=== PATIENT | male | born 1950 | race Caucasian/White ===

== ENCOUNTER 2017-03-15 10:03 | Emergency (ER) | payer BC, MEDICARE ==
[2017-03-15 10:13] VITALS: BP 152/79
--- NOTE | 2017-03-15 10:30 | UC ---
Ear Complaint HPI - HPI Summary HPI Summary: Pt presents with ringing in his left ear. He tells me that about a week ago he developed spontaneous ringing in his left ear. The ringing is difficult for him to notice when active, but when he lays down at night - it is quite bothersome. He describes the ringing as a high pitched "buzz". 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 No hearing loss out of that ear and it does not feel muffled. His BP is mildly elevated today, but says this is not uncommon for him and he is being treated for HTN. Denies dizziness, headache, recent illness, weakness, fatigue, neck pain, vision changes, palpitations, SOB, chest pain, abdominal pain, N/V/D/C, or feelings of being off balance. - History of Current Complaint Chief Complaint: UCEar Stated Complaint: EAR COMPLAINT Time Seen by Provider: 03/15/17 10:19 Hx Obtained From: Patient Onset/Duration: Sudden Onset Severity Initially: Mild Severity Currently: Mild - Allergies/Home Medications Allergies/Adverse Reactions: Allergies Allergy/AdvReac Type Severity Reaction Status Date / Time No Known Allergies Allergy Verified 03/15/17 10:13 PMH/Surg Hx/FS Hx/Imm Hx Endocrine History: Dyslipidemia Cardiovascular History: Hypertension GI/ History: Gastroesophageal Reflux - Surgical History Surgical History: Yes Surgery Procedure, Year, and Place: SMALL BOWEL RESECTION; abd hernia - Family History Known Family History: Positive: Unknown - Social History Occupation: Retired Lives: With Family Alcohol Use: None Substance Use Type: None Smoking Status (MU): Never Smoked Tobacco Type: Cigarettes Have You Smoked in the Last Year: No - Immunization History Most Recent Influenza Vaccination: 2014 Most Recent Tetanus Shot: 2010 Most Recent Pneumonia Vaccination: Never Review of Systems Constitutional: Negative Skin: Negative Eyes: Negative ENT: Other - ringing in left ear Respiratory: Negative Cardiovascular: Negative Gastrointestinal: Negative Genitourinary: Negative Motor: Negative Neurovascular: Negative Musculoskeletal: Negative Neurological: Negative Psychological: Negative All Other Systems Reviewed And Are Negative: Yes Physical Exam Triage Information Reviewed: Yes Appearance: Well-Appearing, Well-Nourished Vital Signs: Initial Vital Signs Temp 98.2 F 03/15/17 10:10 Pulse 68 03/15/17 10:10 Resp 14 03/15/17 10:10 BP 152/79 03/15/17 10:10 Pulse Ox 100 03/15/17 10:10 Vital Signs Reviewed: Yes Eyes: Positive: Conjunctiva Clear, Other: - PERRLA. EOMI.. Negative: Conjunctiva Inflamed, Discharge ENT: Positive: Hearing grossly normal - Whisper test heard equally bilaterally, Pharynx normal, TMs normal, Uvula midline. Negative: Pharyngeal erythema, Nasal congestion, Nasal drainage, TM bulging, TM dull, TM red, Tonsillar swelling, Tonsillar exudate, Sinus tenderness Neck: Positive: Supple, No Lymphadenopathy, Other: - FROM. NTTP. Negative spurlings. Respiratory: Positive: Chest non-tender, Lungs clear, Normal breath sounds, No respiratory distress, No accessory muscle use Cardiovascular: Positive: RRR, No Murmur, Pulses Normal, Brisk Capillary Refill , Other: - No carotid bruit appreciated b/l. Abdomen Description: Positive: Nontender, No Organomegaly, Soft. Negative: CVA Tenderness (R), CVA Tenderness (L), Distended, Guarding Bowel Sounds: Positive: Present Musculoskeletal: Positive: Strength Intact - Throughout 5/5, ROM Intact Neurological: Positive: Alert, Muscle Tone Normal, Other: - A&Ox3. 3 word recall , remote, recent memory, ability to follow 2-step directions, and attention intact. CN II XII grossly intact. [id number]-[id number] are intact. Gait with normal base. Romberg: maintains balance, no pronator drift. Sensory: Intact UEs and LEs. Reflexes: biceps, triceps, brachioradialis, knee, and ankle intact. Normal speech. No facial drooping. Psychological: Positive: Age Appropriate Behavior Skin: Negative: rashes, significant lesion(s) Ear Complaint Course/Dx - Course Course Of Treatment: Tinnitus of unknown etiology. Pt is stable, his exam is unremarkable, and he has no other symptoms at this time. I presented the patient to Dr. Lara and we discussed risks including, but not limited to; CVA, TIA, cardiac abnormalities, and vascular disease. Given the patient's 1 week hx of isolated tinnitus - advised follow up with PCP this week. - Differential Dx/Diagnosis Differential Diagnosis/HQI/PQRI: Cerumen Impaction, Foreign Body, Otitis Externa , Otitis Media, Perforated TM, Trigeminal Nueralgia, URI Provider Diagnoses: Tinnitus Discharge - Discharge Plan Condition: Stable Disposition: HOME Patient Education Materials: Tinnitus (ED) Referrals: Christiano Santiago MD [Primary Care Provider] - 5 Days Additional Instructions: If you develop a fever, SOB, chest pain, headache, dizziness, balance disturbances, new or worsening symptoms - please call your PCP or go to the ED. Your blood pressure was high at todays visit. Please see your primary provider within 4 weeks for recheck and re-evaluation. 1) Please call your PCP and schedule a follow up appointment within the next 5 days.
== END 2017-03-15 11:05 | disposition home or self-care (01) ==
LOC: UCEAST 10:03
DX: H93.12 Tinnitus, left ear (principal); I10 Essential (primary) hypertension; E78.5 Hyperlipidemia, unspecified; K21.9 Gastro-esophageal reflux disease without esophagitis
CPT/HCPCS: 99211; G0463

== ENCOUNTER 2017-04-24 19:22 | Emergency (ER) | payer MEDICARE ==
[2017-04-24 19:36] VITALS: BP 119/84
--- NOTE | 2017-04-24 20:16 | UC ---
Sai Meeks Stephanie, scribed for Gabriela Madrid MD on 04/24/17 at 2000 . Abdominal Pain Male HPI - HPI Summary HPI Summary: The pt is a 67 y/o M presenting to with c/o abd pain that began on 04/22/17. Symptoms include nausea, sleep disturbances, lightheadedness, vomiting and muscle aches within the lower extremities. He vomited 3x overnight on 04/22, but not since then. The pt denies recent sick contacts. He denies blood in stool, unusual BM, CP, SOB, fever and FRIAS. He is passing gas. Today he had eggs for breakfast and soup tonight, without further emesis. The pt reports receiving his influenza vaccine this season. Came tonight because he was watching a report on influenza and thought that he might need to take something. Hx of small bowel obstruction, ? benign tumor, with resection. Had c-scope in 2016/endoscopy, overall normal. - History of Current Complaint Chief Complaint: UCAbdominalPain Stated Complaint: ACHES, AND ABDOMINAL PAIN Time Seen by Provider: 04/24/17 19:41 Hx Obtained From: Patient Onset/Duration: Lasting Days - 2, Still Present Severity Currently: Mild Pain Intensity: 0 Pain Scale Used: 0-10 Numeric Location: Diffuse - katherin-umbilical Radiates: No Aggravating Factor(s): Nothing Alleviating Factor(s): Nothing - no meds used; does take famotidine for stomach acid. Associated Signs And Symptoms: Positive: Nausea, Vomiting, Other - sleep disturbances, muscle aches in lower extremities.. Negative: Fever, Chest Pain, Blood in Stool, Urinary Symptoms, Diarrhea - Allergies/Home Medications Allergies/Adverse Reactions: Allergies Allergy/AdvReac Type Severity Reaction Status Date / Time No Known Allergies Allergy Verified 04/24/17 19:36 PMH/Surg Hx/FS Hx/Imm Hx Cardiovascular History: Hypertension, Other - HLD Other Cardiovascular History: HLD - Surgical History Surgical History: Yes Surgery Procedure, Year, and Place: SMALL BOWEL RESECTION; abd hernia - Family History Known Family History: Positive: Other - Multiple sclerosis- maternal Negative: Cardiac Disease, Diabetes - Social History Occupation: Retired - [employer] Lives: With Family - , no children Alcohol Use: None Substance Use Type: None Smoking Status (MU): Never Smoked Tobacco Type: Cigarettes Have You Smoked in the Last Year: No - Immunization History Most Recent Influenza Vaccination: 2014 Most Recent Tetanus Shot: 2010 Most Recent Pneumonia Vaccination: Never Review of Systems Constitutional: Other - sleep disturbances Skin: Negative Eyes: Negative ENT: Negative Respiratory: Negative Cardiovascular: Other - treated hypertension, started amlodipine 2 weeks ago with reduction of BP. BP was 170 systolic at PMD office at that time. Gastrointestinal: Abdominal Pain, Vomiting, Nausea Genitourinary: Negative, Other - normal urine passage. Motor: Negative Neurovascular: Negative Musculoskeletal: Other: - lower extremity muscle aches Neurological: Other - lightheadedness Psychological: Negative Is Patient Immunocompromised?: No All Other Systems Reviewed And Are Negative: Yes Physical Exam Triage Information Reviewed: Yes Appearance: Well-Nourished - Looks older than age, vague historian Vital Signs: Initial Vital Signs Temp 98.4 F 04/24/17 19:30 Pulse 85 04/24/17 19:30 Resp 12 04/24/17 19:30 BP 119/84 04/24/17 19:30 Pulse Ox 99 04/24/17 19:30 Eyes: Positive: Conjunctiva Clear ENT: Positive: Pharynx normal, Pharyngeal erythema Neck: Positive: Supple, Nontender, No Lymphadenopathy Respiratory: Positive: Lungs clear, Normal breath sounds Cardiovascular: Positive: RRR, No Murmur Abdomen Description: Positive: No Organomegaly, Soft, Other: - mild tenderness left mid abdomen without guarding or rebound. NO distention.. Negative: CVA Tenderness (R), CVA Tenderness (L) Bowel Sounds: Positive: Present - all 4 quadrants. Neurological: Positive: Alert, Muscle Tone Normal Psychological Exam: Other - ? mildly depressed affect. Skin Exam: Normal Abd Pain Male Course/Dx - Course Course Of Treatment: The pt is a 67 y/o M presenting to with c/o abd pain, nausea, sleep disturbances, lightheadedness, vomiting and muscle aches within the lower extremities that began on 04/22/17. Vital sounds are stable, and exam is reassuring. NO evidence of bowel obstruction. - Differential Dx/Clinical Impression Differential Diagnosis/HQI/PQRI: Appendicitis, Diverticulitis, Ischemic Bowel Provider Diagnoses: viral gastroenteritis, resolving. Clinical exam not suggestive of obstruction. Discharge - Discharge Plan Condition: Stable Disposition: HOME Patient Education Materials: Abdominal Pain (ED) Referrals: Christiano Santiago MD [Primary Care Provider] - Additional Instructions: As discussed, your symptoms are improving. I advise you to drink more fluids, ensuring that you take in about 64 ounces of fluid in the next several days. If you have persistent nausea, or any vomiting, I suggest seeing your PMD tomorrow or considering an emergency room visit for testing. You can take acetaminophen 650mg for discomfort. The documentation as recorded by the Sai vivar Stephanie accurately reflects the service I personally performed and the decisions made by me, Gabriela Madrid MD.
== END 2017-04-24 20:20 | disposition home or self-care (01) ==
LOC: UCEAST 19:22
DX: A08.4 Viral intestinal infection, unspecified (principal)
CPT/HCPCS: 99211; G0463

== ENCOUNTER 2018-06-03 12:20 | Inpatient (IN) | payer MEDICARE ==
--- NOTE | 2018-06-03 12:48 | ED ---
GI/ HPI - HPI Summary HPI Summary: A 68 y/o M presents to ED with c/o bloody, bright red, stool 2x today with last onset at 1030. He went to his PCP this AM who referred him to the ED for further evaluation. Pt is scheduled to see a GI doctor in two days. Associated sx: diarrhea, mild abd tenderness. Denies dizziness, SOB. He denies taking blood thinners and daily aspirin. He had a colonoscopy in 2016. - History of Current Complaint Chief Complaint: EDGIBleed Time Seen by Provider: 06/03/18 12:40 Stated Complaint: RECTAL BLEED PER PT Hx Obtained From: Patient, Family/[employer]isher - Onset/Duration: Started Hours Ago, Still Present Timing: Intermittent - 2x Severity: Mild Current Severity: Mild Vaginal Bleeding Description: Bright Red Pain Intensity: 0 - out of 10 Associated Signs and Symptoms: Positive: Abdominal Pain - mild. Negative: Dizziness, Other: - neg: SOB - Additional Pertinent History Primary Care Physician: DANIEL - Allergy/Home Medications Allergies/Adverse Reactions: Allergies Allergy/AdvReac Type Severity Reaction Status Date / Time No Known Allergies Allergy Verified 06/03/18 12:54 Home Medications: Home Medications Pravastatin (NF) [Pravachol (NF)] 10 mg PO 1700 06/03/18 [History Confirmed 09/16] amLODIPine TAB* [Norvasc 5 mg TAB*] 2.5 mg PO DAILY 06/03/18 [History Confirmed 06/03/18] PMH/Surg Hx/FS Hx/Imm Hx Previously Healthy: No Endocrine/Hematology History: Denies: Hx Diabetes, Hx Thyroid Disease Cardiovascular History: Reports: Hx Hypertension Denies: Hx Congestive Heart Failure Respiratory History: Denies: Hx Asthma, Hx Chronic Obstructive Pulmonary Disease (COPD) GI History: Reports: Hx Gastroesophageal Reflux Disease, Other GI Disorders - small bowel resection 2016, Denies: Hx Ulcer History: Denies: Hx Renal Disease Musculoskeletal History: Reports: Hx Orthopedic Injury - L Wrist fx Sensory History: Reports: Hx Contacts or Glasses Opthamlomology History: Reports: Hx Contacts or Glasses - Surgical History Surgery Procedure, Year, and Place: SMALL BOWEL RESECTION; abd hernia Infectious Disease History: No Infectious Disease History: Denies: Hx Clostridium Difficile, Hx Hepatitis, Hx Human Immunodeficiency Virus (HIV), Hx of Known/Suspected MRSA, Hx Shingles, Hx Tuberculosis, Hx Known/ Suspected VRE, Hx Known/Suspected VRSA, History Other Infectious Disease, Traveled Outside the [place] in Last 30 Days - Family History Known Family History: Positive: Other - Multiple sclerosis- maternal Negative: Cardiac Disease, Diabetes - Social History Occupation: Employed Full-time Lives: With Family Alcohol Use: None Substance Use Type: Reports: None Smoking Status (MU): Never Smoked Tobacco Type: Cigarettes Have You Smoked in the Last Year: No Review of Systems Negative: Fever Negative: Shortness Of Breath Positive: Abdominal Pain - mild, Diarrhea, Other - pos: bloody stool Neurological: Other - neg: dizziness All Other Systems Reviewed And Are Negative: Yes Physical Exam - Summary Physical Exam Summary: VITAL SIGNS: Reviewed. GENERAL: Patient is a well-developed and nourished MALE who is lying comfortable in the stretcher. Patient is not in any acute respiratory distress. HEAD AND FACE: No signs of trauma. No ecchymosis, hematomas or skull depressions. No sinus tenderness. EYES: PERRLA, EOMI x 2, No injected conjunctiva, no nystagmus. EARS: Hearing grossly intact. Ear canals and tympanic membranes are within normal limits. MOUTH: Oropharynx within normal limits. NECK: Supple, trachea is midline, no adenopathy, no JVD, no carotid bruit, no c- spine tenderness, neck with full ROM. CHEST: Symmetric, no tenderness at palpation LUNGS: Clear to auscultation bilaterally. No wheezing or crackles. CVS: Regular rate and rhythm, S1 and S2 present, no murmurs or gallops appreciated. ABDOMEN: Soft, epigastric and lower abd tenderness. No signs of distention. No rebound, no guarding, and no masses palpated. Bowel sounds are normal. EXTREMITIES: FROM in all major joints, no edema, no cyanosis or clubbing. NEURO: Alert and oriented x 3. No acute neurological deficits. Speech is normal and follows commands. SKIN: Dry and warm RECTAL: Bright red blood per rectum, no hemorrhoids. Triage Information Reviewed: Yes Vital Signs On Initial Exam: Initial Vitals Temp Pulse Resp BP Pulse Ox 98.3 F 70 18 147/88 100 06/03/18 12:28 06/03/18 12:28 06/03/18 12:28 06/03/18 12:28 03/06/19 12:28 Vital Signs Reviewed: Yes Diagnostics - Vital Signs Vital Signs Temp Pulse Resp BP Pulse Ox 06/03/18 12:28 98.3 F 70 18 147/88 100 - Laboratory Result Diagrams: 06/03/18 17:24 06/03/18 12:47 Lab Statement: Any lab studies that have been ordered have been reviewed, and results considered in the medical decision making process. - EKG 1245 Cardiac Rate: NL - 61 bpm EKG Rhythm: Sinus Rhythm Summary of EKG Findings: No ST elevation. GIGU Course/Dx - Course Assessment/Plan: This patient is a 68-year-old male who presents to the emergency room with chief complaint of having rectal bleeding. Rectal exam with positive bilateral red blood. Blood work shows atelectasis of 13.6, hemoglobin 9.5, hematocrit 30, BUN is 31 creatinine 1.29, glucose 117. Occult blood is positive. At this time I discussed my physical exam and findings with Dr. Clark from GI and she recommended for the patient to be admitted to the hospital services and also she will do an endoscopy today and possibly a colonoscopy tomorrow. Therefore I discussed my physical exam and findings with Dr. Lynn from the hospitalist services who accepted the patient for admission. The patient is hemodynamically stable alert and oriented 3. - Diagnoses Provider Diagnoses: GI bleed - Physician Notifications Discussed Care Of Patient With: Albert Lynn - hospitalist Time Discussed With Above Provider: 15:15 Instructed by Provider To: Admit As Inpatient Discharge - Sign-Out/Discharge Documenting (check all that apply): Patient Departure - ADMIT Patient Received Moderate/Deep Sedation with Procedure: No - Discharge Plan Condition: Stable Disposition: ADMITTED TO [facility] - Billing Disposition and Condition Condition: STABLE Disposition: Admitted to [facility] - Attestation Statements Document Initiated by Scribe: Yes Documenting Scribe: Walter Montenegro Provider For Whom David is Documenting (Include Credential): Dr. Rico Shen MD Scribe Attestation: Walter Meeks scribed for Dr. Rico Shen MD on 06/03/18 at 2224. Scribe Documentation Reviewed: Yes Provider Attestation: The documentation as recorded by the scribe, SooYoung VanDeMark accurately reflects the service I personally performed and the decisions made by me, Dr. Rico Shen MD Status of Scribe Document: Viewed Consult Consult: 1508: Consult with Dr. Clark GI Recommends endoscopy today and colonoscopy tomorrow. Recommends hospital admission.
[2018-06-03 12:59] LABS: ABS Basophils 0.1 10^3/ul (0-0.2); ABS Eosinophils 0 10^3/ul (0-0.6); ABS Lymphocytes 1.9 10^3/ul (1.0-4.8); ABS Monocytes 0.9 10^3/ul (0-0.8); ABS Neutrophils 10.7 10^3/ul (1.5-7.7); ABS Nucleated RBC 0 10^3/ul; Eosinophil % 0.3 %; Hematocrit 30 % (42-52); Hemoglobin 9.5 g/dl (14.0-18.0); Lymphocyte % 13.9 %; Mean Corpuscular HGB Conc 32 g/dl (31-36); Mean Corpuscular Hemoglobin 29 pg (27-31); Mean Corpuscular Volume 89 fL (80-94); Mean Platelet Volume 10.8 fL (7.4-10.4); Nucleated Red Blood Cells % 0; Platelet Count 289 10^3/ul (150-450); Red Blood Count 3.33 10^6/ul (4.00-5.40); Red Cell Distribution Width 13 % (10.5-15); White Blood Count 13.6 10^3/ul (3.5-10.8)
[2018-06-03 13:07] LABS: Activated Partial Thrombo Time 29.6 seconds (26.0-36.3); INR 0.9 (0.77-1.02)
[2018-06-03 13:15] LABS: Albumin 4.1 g/dL (3.2-5.2); Albumin/Globulin Ratio 1.9 (1-3); Calcium 8.8 mg/dL (8.6-10.3); EGFR African American 67.2 (>60); EGFR Non-African American 55.6 (>60); Globulin 2.2 g/dL (2-4); Potassium 4.1 mmol/L (3.5-5.0); Total Bilirubin 0.3 mg/dL (0.2-1.0); Total Protein 6.3 g/dL (6.4-8.9)
[2018-06-03] MEDS ORDERED: Pantoprazole IV* 40 MG IV ONE (14:24)
[2018-06-03] MEDS ORDERED: NS 0.9% 1000 ML** 1,000 ML IV ONE (14:25)
[2018-06-03] MEDS ORDERED: Morphine 4 MG/ML VIAL (1 ml) 4 MG/ML VIAL IV PRN (15:39)
[2018-06-03] MEDS ORDERED: Ondansetron INJ* 2 MG/ML VIAL IV PRN (15:39)
[2018-06-03] MEDS ORDERED: Midazolam* 1 MG/ML 10 ML VIAL (10 MG) ONE (15:45)
[2018-06-03] MEDS ORDERED: fentaNYL* 50 MCG/ML 2 ML VIAL (100 MCG VIAL) ONE (15:45)
[2018-06-03] MEDS ORDERED: Pantoprazole IV* 40 MG IV SCH (16:00)
[2018-06-03] MEDS ORDERED: PEG 3000 GI LAVAGE* 1 GALLON PO ONE (16:58)
--- NOTE | 2018-06-03 17:03 | CONS ---
GASTROENTEROLOGY CONSULT REPORT: DATE OF CONSULT: 06/03/18 REQUESTING CONSULT: ED. The patient was seen in the ED for the consultation. REASON FOR CONSULT: Rectal bleeding. HISTORY OF PRESENT ILLNESS: Mr. Barrett is a 68-year-old gentleman with a history of hypertension, hyperlipidemia, GERD, and small bowel bleeding status post resection, who presents to the ED with rectal bleeding. Mr. Barrett states that he was in usual state of health until this morning when he woke up. He then passed 2 loose stools mixed with bright red blood. He also noticed that some of the stools appeared black. Last bowel movement was at 11 a.m. He has noticed his bowel movements are a bit smaller over the past week or so. Denies any abdominal pain other than a "funny pinching feeling" in his epigastrium, which has been present for the past week. He denies any reflux on famotidine 40 mg daily. Denies any nausea, vomiting, or dysphagia. Denies any dizziness, chest pain, or shortness of breath. No NSAID use. Presented to the ER for evaluation. In the ER, his labs were notable for a white count 13.6, a hemoglobin 9.5, hematocrit 30, BUN 31, creatinine 1.29. Rectal exam demonstrated bright red blood. GI consulted. Mr. Barrett is unable to provide full details of his medical history, so chart review was particularly helpful in detailing his prior GI evaluation. It seems that he had a history of overt GI bleeding in 2001/2002 for which upper and lower endoscopies were performed and found to be unremarkable. He then had recurrent GI bleeding episode in 2005 with a normal EGD and colonoscopy. A capsule study at that time demonstrated proximal a jejunal deformity without kam bleeding. This was felt to be of unclear significance. There was also note made of intraluminal blood in the ileum consistent with GI bleeding. The patient subsequently underwent a small bowel resection. Path report describes focal ulceration and transmural inflammation favored to represent Crohn's. Patient has not manifested other signs of Crohn disease or was specifically treated for this diagnosis. He did well until 2015 when he developed a small bowel obstruction requiring surgical intervention. Postoperatively, he developed pulmonary embolus and was placed on Xarelto, which was then converted to Coumadin. On anticoagulation, he became anemic and was noted to have intermittent rectal bleeding. Repeat EGD and colonoscopy in May [address] Garcia were performed. EGD demonstrated hiatal hernia. Colonoscopy demonstrated sigmoid diverticulosis and internal hemorrhoids. The patient had resolution of the rectal bleeding after anticoagulation was stopped, so no further workup was pursued. PAST MEDICAL HISTORY: 1. Hypertension. 2. Hyperlipidemia. 3. GERD. 4. Small bowel bleeding s/p resection as detailed above. PAST SURGICAL HISTORY: 1. Inguinal hernia repair. 2. Small bowel resection as above. MEDICATIONS: 1. Atenolol 50 mg daily. 2. Amlodipine 2.5 mg daily. 3. Pravastatin 10 mg daily. 4. Famotidine 40 mg daily. ALLERGIES: No known drug allergies. FAMILY HISTORY: No known GI or liver disease. 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 He is a nonsmoker. Denies significant alcohol use. No drug use. REVIEW OF SYSTEMS: A 14-point review of systems was negative except as above. PHYSICAL EXAM: Vital Signs: Afebrile, heart rate 61, blood pressure 132/78, 99% on room air. General: Pleasant gentleman. Answers in very short replies. No acute distress. is at bedside. HEENT: Mucous membranes are moist. Cardiovascular: Regular rate and rhythm. Pulm: Breathing comfortably. Abdomen: Soft, nontender, nondistended. Rectal: Small amount of bright red blood per rectum. Extremities: No edema. DIAGNOSTIC STUDIES/LAB DATA: Labs reviewed as in HPI. White count 13.6, hemoglobin 9.5, hematocrit 30, platelet count 289. INR 0.9. BUN 31, creatinine 1.29. ALT, AST, alk phos, and bilirubin are normal. Imaging: No imaging this admission. PROCEDURES: Prior procedures summarized in HPI. IMPRESSION AND RECOMMENDATIONS: Mr. Barrett is a 68-year-old gentleman with a history of hypertension, hyperlipidemia, gastroesophageal reflux disease, and small bowel bleeding status post small bowel resection in 2005, who presents with rectal bleeding. Mr. Barrett reports 2 episodes of bright red blood and melena since this morning. He is hemodynamically stable. Labs are notable for anemia, although comparison values are not readily available to determine if this represents acute anemia or acute on chronic anemia. Rectal exam confirmed a small amount of red blood without melena. Given Mr. Barrett's history of GI bleeding on several occasions with a small bowel resection for identified bleeding site, I am suspicious for recurrent small bowel bleeding. The small bowel resection specimen noted transmural inflammation and focal ulceration suspicious for Crohn's disease, but there has been no other evidence of IBD making this a doubtful diagnosis. Additionally, it would be uncommon for Crohn's disease to present with severe GI bleeding. - Continue to monitor CBC. Please obtain most recent outpatient labs for comparison if possible. - Continue IV PPI b.i.d. for now. - We will plan for EGD this afternoon to ensure no upper gastrointestinal bleeding. - Depending on findings of the EGD, we will discuss if repeat colonoscopy should be pursued tomorrow. Can also consider CT enterography for further evaluation of small bowel. Thank you very much for this consult. [id number]/[facility] #: [id number] JANEL
[2018-06-03] MEDS: NS 0.9% 1000 ML** 1,000 ML IV SCH (17:28)
[2018-06-03] MEDS: Atorvastatin* 10 MG TAB PO SCH (17:28)
--- NOTE | 2018-06-03 17:36 | PRO ---
CC: Christiano Santiago MD; Albert Lynn MD * DATE OF PROCEDURE: 06/03/18 - ROOM #411 DATE OF : 52 PRIMARY CARE PHYSICIAN: Christiano Santiago MD ADMITTING PROVIDER: Albert Lynn MD PROCEDURE: EGD with biopsy. INDICATION: Patient with a history of small-bowel bleeding who is status post resection in 2005. Resection specimen demonstrated ulceration and transmural inflammation suggestive of Crohn's disease, although the patient has not had other findings or symptoms consistent with this diagnosis. History of rectal bleeding in 2016 in setting of anticoagulation for PE. EGD/colonoscopy were negative at that time. Bleeding resolved off anticoagulation and further work- up was not pursued. Now admitted with hematochezia and melena. Labs notable for a hemoglobin of 9.5. MEDICATIONS GIVEN: Midazolam 8 mg IV, Fentanyl 75 mcg IV. DESCRIPTION OF PROCEDURE: Full disclosure of risks was reviewed with the patient as detailed on the consent form. The patient was placed in the left lateral decubitus position and monitored with continuous pulse oximetry, capnography, interval blood pressure monitoring, and direct observation. A bite -block was placed between the patient's teeth. An adult gastroscope was then inserted into the patient's mouth and advanced down the esophagus, into the stomach, and into the distal duodenum. Findings and interventions are described below. FINDINGS: Esophagus notable for a widely patent Schatzki ring in distal esophagus immediately proximal to GE junction. GE junction was regular and occurred at 41 cm. Scope was easily advanced through the Schatzki ring. Hiatal hernia measuring 4 cm was noted. Scope was then advanced further into the stomach. Stomach was examined in the forward and retroflexed views. Gastric mucosa was normal without erythema, erosions, or ulcers. There was no fresh or old blood noted. There were several scattered polyps measuring from several millimeters to 8 mm. These polyps were in the proximal and mid gastric body. Biopsies obtained from several polyps for sampling. Scope was then advanced into the duodenum to at least the fourth portion. Duodenum was notable for some nodular erythema in the bulb. No erosions or ulcers. No fresh or old blood. Biopsies of the duodenal bulb were obtained. Scope was then withdrawn from the patient. Patient tolerated the procedure well and was recovered in the GI recovery area. IMPRESSION: 1. Complete upper endoscopy to distal duodenum. 2. Widely patent Schatzki ring. Ring was not dilated as the patient is undergoing a workup for acute GI bleeding. Additionally, he denies any dysphagia symptoms. 3. Hiatal hernia. 4. Scattered gastric polyps. 5. Duodenal bulb nodular erythema. 6. No evidence of fresh or old blood. No source of anemia or gastrointestinal bleeding identified on this exam. FOLLOWUP: 1. Continue to monitor CBC 2. Await pathology. 3. Recommend pursuing colonoscopy for GI bleed evaluation. Clear diet until midnight and then NPO. Avoid red liquids. Please give GoLYTELY 4 L for prep this evening. Thank you very much for this consult. GI will continue to follow. [id number]/CPS #: [id number] JANEL
[2018-06-03 17:58] LABS: Hematocrit 24 % (42-52); Hemoglobin 8.1 g/dl (14.0-18.0)
--- NOTE | 2018-06-03 18:18 | HP ---
CC: Dr. Christiano Santiago; Dr. Sadie Clark * HISTORY AND PHYSICAL: DATE OF ADMISSION: 06/03/18 PRIMARY CARE PROVIDER: Dr. Christiano Santiago. ATTENDING PHYSICIAN: Dr. Albert Lynn * (dictated by Shanda Costa NP). CHIEF COMPLAINT: Bloody diarrhea. HISTORY OF PRESENT ILLNESS: Mr. Barrett is a 68-year-old male with past medical history of hypertension, hyperlipidemia, GERD and remote history of bowel obstruction, status post resection; who presents to the ED today with complaints of bloody diarrhea. The patient reports that he awoke this morning around 6 a.m. and had 1 episode of bloody diarrhea. At that point, he denied any dizziness, lightheadedness, or shortness of breath. The patient stayed at home and then around 10:30 had another episode of bloody diarrhea. This was described as bright red blood, though the patient is not able to further describe the appearance. He spoke with his primary care office after the first episode, but ultimately after the second episode, he chose to come to the emergency room. He had no abdominal pain or gastrointestinal symptoms yesterday. He reports eating tacos for dinner, which is somewhat typical for him. He reports taking NSAIDs approximately 2 times per month. He does not take any aspirin or other blood thinners. He denies any alcohol use. He did have a colonoscopy back in [address] Garcia and as far as he knows there were no abnormal findings. In the emergency room, the patient was found to be anemic an H and H of 9.5 and 30. He was seen in consultation by Dr. Clark from Gastroenterology, who reportedly will plan to take the patient for an EGD later today. At this point , the patient denies any nausea or vomiting. He denies any abdominal pain, though does report some occasional "gas pains." He denies any dizziness, lightheadedness, or shortness of breath. Because of the concern for GI bleed and anemia, the hospitalist service was asked to evaluate for admission. PAST MEDICAL HISTORY: 1. Hypertension. 2. Hyperlipidemia. 3. GERD. 4. Small bowel obstruction. PAST SURGICAL HISTORY: 1. Bowel resection x2. 2. Hernia repair. HOME MEDICATIONS: 1. Amlodipine 2.5 mg p.o. daily. 2. Atenolol 50 mg p.o. daily. 3. Famotidine 40 mg p.o. daily. 4. Pravastatin 10 mg p.o. daily. ALLERGIES: No known drug allergies. FAMILY HISTORY: The patient reports that his mother had multiple sclerosis. His father is alive and well in his 90s. The patient denies any family history of heart disease, diabetes, or cancer. SOCIAL HISTORY: The patient denies any tobacco, alcohol, or recreational drug use. 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 He lives at home with his , Rafaela, who will be his surrogate decision maker in the event he is unable to make his own decisions. REVIEW OF SYSTEMS: An 11-point review of systems was performed and all the pertinent positive and negative findings are in the HPI. All other systems are negative. PHYSICAL EXAMINATION GENERAL: Mr. Barrett is a well-developed, well-nourished, middle-aged white male, lying in bed, in no acute distress. He appears his stated age. VITAL SIGNS: Temp 98.7, heart rate 62, respiratory rate 18, oxygen saturation 97 % on room air, blood pressure 132/78. HEENT: Head is atraumatic, normocephalic. Visual otero are grossly intact. Pupils are equal, round, and reactive to light and accommodation. Extraocular movements intact. Oral mucous membranes moist and without lesions. NECK: Full range of motion. Thyroid not palpable. Trachea at midline. No lymphadenopathy. RESPIRATORY: Symmetrical chest expansion. No chest wall deformities. Lungs clear to auscultation throughout. No rhonchi, wheezes, or rales. CARDIOVASCULAR: Regular rate and rhythm. S1, S2 present. No murmurs, rubs, or gallops. No JVD. ABDOMEN: Soft. Mildly tender to palpation in the lower quadrants, particularly the left lower quadrant. Bowel sounds normoactive throughout. No hepatosplenomegaly. EXTREMITIES: Skin warm and smooth bilaterally. No edema. No clubbing or cyanosis. Pedal pulses 2+ bilaterally. NEUROLOGIC: Awake, alert, and oriented x4. Cranial nerves II through XII grossly intact. Moves all extremities. Motor strength 5/5 in the upper and lower extremities bilaterally. SKIN: Grossly intact without lesions. DIAGNOSTIC STUDIES/LAB DATA: WBC 13.6, RBC 3.33, hemoglobin 9.5, hematocrit 30 , platelets 289. INR 0.9. Sodium 136, potassium 4.1, chloride 106, carbon dioxide 26, BUN 31, creatinine 1.29, glucose 117. EKG shows normal sinus rhythm with a rate of 60, QTc 420, small Q-waves present in V4 through V6. No ischemic changes. Q-waves were present on previous EKGs on file. ASSESSMENT AND PLAN: Mr. Barrett is a 68-year-old male with past medical history of hypertension, hyperlipidemia and gastroesophageal reflux disease, who presents to the emergency room today with complaints of bloody diarrhea and was found to have a positive stool guaiac and to be significantly anemic. The patient will be admitted observation for: 1. Gastrointestinal bleed. The patient is anemic from his baseline. He is 9.5 and 30 today. H and H back in 2016 were 11 and 36, so he does appear to have some mild anemia at baseline. Creatinine is also slightly elevated. This is secondary to hypovolemia from acute blood loss. Vital signs are stable at this point and the patient is hemodynamically stable. He has already been seen by Dr. Clark, who plans to do an EGD later today. If the EGD looks normal , she will plan on doing a colonoscopy tomorrow. The patient did receive 1 dose of pantoprazole, 1 bag of IV fluids in the emergency room. I will continue him on IV pantoprazole and normal saline. At this point, he will be n.p.o. pending his EGD. I will check serial H and H every 6 hours. 2. Hypertension. The patient is normotensive in the emergency room. I will continue his typical amlodipine and atenolol starting tomorrow as long as his blood pressure remains stable. 3. Hyperlipidemia. I will continue the patient's pravastatin or formulary substitute. 4. Gastroesophageal reflux disease. The patient typically takes famotidine daily. I will hold that at this point and as discussed above, I will continue him on pantoprazole. 5. FEN: Fluids as discussed above. The patient does not require any electrolyte repletion at this time. Again, he will be n.p.o. at this point, though can likely have clear liquids after his EGD at the discretion of Dr. Letitia Back. 6. Code status: The patient will be a full code. 7. DVT prophylaxis: According to the DVT Risk Assessment, the patient scores a 2 putting him at moderate risk. Due to his active bleeding, I will avoid any pharmacological DVT prophylaxis at this point and I have placed him on SCDs. TIME SPENT: Approximately 60 minutes was spent on this admission, greater than half of that time spent [id number] with the patient and his obtaining my history, performing my physical exam, and reviewing the plan of care. This case has been reviewed with my attending, Dr. Lynn, who is in agreement with the plan of care. SHANDA COSTA, [employer] [id number]/CPS #: [id number] JANEL
[2018-06-03] MEDS: Pantoprazole IV* 40 MG IV SCH (20:37)
[2018-06-03 23:08] LABS: Hematocrit 24 % (42-52); Hemoglobin 7.8 g/dl (14.0-18.0)
[2018-06-04] MEDS: NS 0.9% 1000 ML** 1,000 ML IV SCH ×3 (02:14→19:44)
[2018-06-04 07:04] LABS: ABS Basophils 0 10^3/ul (0-0.2); ABS Eosinophils 0.1 10^3/ul (0-0.6); ABS Monocytes 0.4 10^3/ul (0-0.8); ABS Neutrophils 4.7 10^3/ul (1.5-7.7); ABS Nucleated RBC 0 10^3/ul; Eosinophil % 1.4 %; Hematocrit 24 % (42-52); Lymphocyte % 15.8 %; Mean Corpuscular HGB Conc 33 g/dl (31-36); Mean Corpuscular Hemoglobin 29 pg (27-31); Mean Corpuscular Volume 88 fL (80-94); Mean Platelet Volume 10.5 fL (7.4-10.4); Nucleated Red Blood Cells % 0; Platelet Count 221 10^3/ul (150-450); Red Blood Count 2.78 10^6/ul (4.00-5.40); Red Cell Distribution Width 13 % (10.5-15); White Blood Count 6.2 10^3/ul (3.5-10.8)
[2018-06-04 07:20] LABS: Calcium 8.3 mg/dL (8.6-10.3); EGFR African American 81.6 (>60); EGFR Non-African American 67.5 (>60); Potassium 4.1 mmol/L (3.5-5.0)
[2018-06-04] MEDS: amLODIPine TAB* 5 MG PO SCH (08:55)
[2018-06-04] MEDS: Pantoprazole IV* 40 MG IV SCH ×2 (08:55→20:23)
[2018-06-04] MEDS: Atenolol TAB* 50 MG PO SCH (08:55)
[2018-06-04 12:13] LABS: Hematocrit 23 % (42-52); Hemoglobin 7.6 g/dl (14.0-18.0)
[2018-06-04] MEDS ORDERED: Midazolam* 1 MG/ML 10 ML VIAL (10 MG) ONE (14:39)
[2018-06-04] MEDS ORDERED: fentaNYL* 50 MCG/ML 2 ML VIAL (100 MCG VIAL) ONE (14:39)
--- NOTE | 2018-06-04 15:42 | PN ---
Subjective Date of Service: 06/04/18 Interval History: Patient seen and examined. Ambulatory, denies chest pain, no SOB, some lower abdominal tenderness, no n/v. States he is still having blood stools. Objective Active Medications: Amlodipine Besylate (Norvasc Tab*) 2.5 mg PO DAILY [facility] Last Admin: 06/04/18 08:55 Dose: 2.5 mg Atenolol (Tenormin Tab*) 50 mg PO DAILY [facility] Last Admin: 06/04/18 08:55 Dose: 50 mg Atorvastatin Calcium (Lipitor*) 2.5 mg PO 1700 [facility] Last Admin: 06/03/18 17:28 Dose: 2.5 mg Sodium Chloride (Ns 0.9% 1000 Ml) 1,000 mls @ 125 mls/hr IV PER RATE [facility] Last Admin: 06/04/18 09:54 Dose: 125 mls/hr Morphine Sulfate (Morphine Vial*) 1 mg IV Q4H PRN PRN Reason: PAIN - MILD Ondansetron HCl (Zofran Inj*) 4 mg IV Q4H PRN PRN Reason: NAUSEA/VOMITING Pantoprazole Sodium (Protonix Iv*) 40 mg IV BID [facility] Last Admin: 06/04/18 08:55 Dose: 40 mg Vital Signs - 8 hr 06/04/18 06/04/18 07:39 10:20 Temperature 98.6 F 98.4 F Pulse Rate 74 62 Respiratory 16 Rate Blood Pressure 129/69 141/78 (mmHg) O2 Sat by Pulse 99 100 Oximetry Oxygen Devices in Use Now: None Appearance: alert, NAD Eyes: No Scleral Icterus, PERRLA Ears/Nose/Mouth/Throat: NL Teeth, Lips, Gums, Mucous Membranes Moist Neck: NL Appearance and Movements; NL JVP, Trachea Midline Respiratory: Symmetrical Chest Expansion and Respiratory Effort, Clear to Auscultation Cardiovascular: NL Sounds; No Murmurs; No JVD, RRR, No Edema Abdominal: No Hepatosplenomegaly, - - mild tenderness to LQ upon palpation, no distension, +[id number] Extremities: No Edema, No Clubbing, Cyanosis Skin: No Rash or Ulcers Neurological: Alert and Oriented x 3, NL Sensation, NL Gait Nutrition: - - NPO Result Diagrams: 06/04/18 11:47 06/04/18 06:53 Microbiology and Other Data: Microbiology 06/03/18 14:37 Stool Occult Blood (KEYUR) - Final Stool Assess/Plan/Problems-Billing Assessment: This is a 68 year old male with hx of HTN, GERD that presented to ED with complaints of bloody stools, admitted for r/o GI bleeding. - Patient Problems (1) Anemia Code(s): D64.9 - ANEMIA, UNSPECIFIED SNOMED Code(s): 031237269 Comment: - With report of bloody diarrhea - s/p EGD with polypectomy yesterday, no ulcers or bleeding noted on GI report - Pending colonoscopy today - H&H dropping but asymptomatic, continue to monitor (2) GERD (gastroesophageal reflux disease) Code(s): K21.9 - GASTRO-ESOPHAGEAL REFLUX DISEASE WITHOUT ESOPHAGITIS SNOMED Code(s): 651811122 Comment: - With noted hiatal hernia on EGD yesterday - PPI 40mg IV BID while hospitalized (3) Hyperlipidemia Code(s): E78.5 - HYPERLIPIDEMIA, UNSPECIFIED SNOMED Code(s): 32184274 Comment: - On statin (4) Hypertension Current Visit: No Status: Acute Priority: Medium Code(s): I10 - ESSENTIAL (PRIMARY) HYPERTENSION SNOMED Code(s): 92319035 Comment: Continue his usual atenolol 50 mg daily. (5) History of colon resection Code(s): Z90.49 - ACQUIRED ABSENCE OF OTHER SPECIFIED PARTS OF DIGESTIVE TRACT SNOMED Code(s): 755218551 Comment: - PMHx of anticoagulation, anemia, GIB and possible inflammatory bowel disease ; had resection in 2016 (6) DVT prophylaxis Code(s): CCH1580 - SNOMED Code(s): 834680746 Comment: - SCDs ambulate (7) Patient is full code Code(s): Z78.9 - OTHER SPECIFIED HEALTH STATUS SNOMED Code(s): 728306783 Status and Disposition: Inpatient, dispo to home when medically stable.
[2018-06-04] MEDS ORDERED: Pantoprazole IV* 40 MG IV SCH (16:00)
--- NOTE | 2018-06-04 16:14 | PN ---
Progress Note - Progress Note Date of Service: 06/04/18 Note: GI Brief Colonoscopy Note indication: hematochezia Colon to ascending colon. Limited by looping and internal hernia Poor prep, but no fresh or old blood Not sufficient for polyp detection. Recommendations: Full liquid Monitor Hgb If ongoing drop would get tagged RBC scan. Deon Ennis DO 06/04/18 [id number]
[2018-06-04] MEDS: Atorvastatin* 10 MG TAB PO SCH (18:56)
[2018-06-04] MEDS: CMCS:Pravastatin (NF) 20 MG TAB PO SCH (20:17)
--- NOTE | 2018-06-04 20:51 | PRO ---
CC: Albert Lynn MD; Christiano Santiago MD* COLONOSCOPY REPORT: DATE OF PROCEDURE: 06/04/18 INDICATION FOR PROCEDURE: Hematochezia. PROCEDURE PERFORMED: Colonoscopy to ascending colon. MEDICATIONS GIVEN: Include: 1. 16 mg IV midazolam. 2. 175 mcg IV fentanyl. DESCRIPTION OF PROCEDURE: After the colonoscopy procedure, including the risks , benefits, and alternative with the risks not limited to perforation, surgery, missed lesions, and/or were explained to the patient, written informed consent was obtained, IV medication was given, rectal exam was performed. The rectal exam was unremarkable without any fresh or old blood. Initially, the pediatric Olympus colonoscope was inserted into the rectum through the colon to roughly the ascending portion. There was quite a bit of looping and a significant internal hernia in the sigmoid that prevented further advancement. I then switched to an adult colonoscope with the hopes of decreasing looping, but was unsuccessful traversing beyond the same point. At this point, I decided to terminate the procedure for safety and the prep was relatively poor. No gross lesions or active bleeding were noted. The stool was slightly darker , but did not appear to be melenic. The scope was then removed over the next 8 minutes carefully inspecting the mucosa. Again, no gross bleeding was noted, however, the preparation was poor, not sufficient for polyp detection. I returned to the rectum, direct views were normal. On retroflexion, grade 1 internal hemorrhoids were appreciated. The scope was then removed from the patient. He tolerated the procedure well. He returned to recovery room in stable condition. IMPRESSION: 1. Colonoscopy to the ascending colon limited by internal hernia and looping. 2. Pediatric and adult scope ineffective at traversing beyond this. 3. No fresh or old blood on exam. 4. Poor prep, not sufficient for polyp detection. RECOMMENDATIONS: We would observe at this time. Place on full liquid diet. If evidence of ongoing drop in hemoglobin, we will get a tagged RBC scan. [id number]/[facility] #: [id number] [facility]ERSrinath
[2018-06-05 08:11] LABS: Hematocrit 25 % (42-52); Hemoglobin 8.1 g/dl (14.0-18.0)
[2018-06-05] MEDS: Pantoprazole IV* 40 MG IV SCH ×2 (10:38→22:03)
[2018-06-05] MEDS: Atenolol TAB* 50 MG PO SCH (10:38)
[2018-06-05] MEDS: amLODIPine TAB* 5 MG PO SCH (10:39)
[2018-06-05] MEDS: NS 0.9% 1000 ML** 1,000 ML IV SCH ×2 (12:35→23:17)
[2018-06-05 17:06] LABS: % Iron Saturation 6 % (15-55); Iron 22 ug/dL (50-212); Total Iron Binding Capacity 379 mcg/dL (250-450); Transferrin 271 mg/dL (203-362)
[2018-06-05] MEDS ORDERED: Iron Sucrose* 200 MG in NS 0.9% 100 ML* 100 ML IVPB ONE (17:30)
[2018-06-05] MEDS: CMCS:Pravastatin (NF) 20 MG TAB PO SCH (17:52)
[2018-06-05] MEDS ORDERED: NS 0.9% 1000 ML** 1,000 ML IV ONE (20:30)
[2018-06-05 21:06] LABS: Hematocrit 26 % (42-52); Hemoglobin 8.3 g/dl (14.0-18.0)
[2018-06-06] MEDS: NS 0.9% 1000 ML** 1,000 ML IV SCH ×2 (07:40→15:58)
[2018-06-06] MEDS: amLODIPine TAB* 5 MG PO SCH (07:54)
[2018-06-06] MEDS: Atenolol TAB* 50 MG PO SCH (07:54)
[2018-06-06] MEDS: Pantoprazole IV* 40 MG IV SCH ×2 (07:54→20:49)
--- NOTE | 2018-06-06 13:10 | PN ---
Subjective Date of Service: 06/06/18 Interval History: Patient seen and examined. Was discharged last night then became orthostatic. Discharge was cancelled and patient was given bolus. Today, orthostasis has resolved but patient is complaining of abdominal distension. Denies n/v. States he was passing flatus this morning. Objective Active Medications: Amlodipine Besylate (Norvasc Tab*) 2.5 mg PO DAILY [facility] Last Admin: 06/06/18 07:54 Dose: 2.5 mg Atenolol (Tenormin Tab*) 50 mg PO DAILY [facility] Last Admin: 06/06/18 07:54 Dose: 50 mg Sodium Chloride (Ns 0.9% 1000 Ml) 1,000 mls @ 125 mls/hr IV PER RATE [facility] Last Admin: 06/06/18 07:40 Dose: 125 mls/hr Morphine Sulfate (Morphine Vial*) 1 mg IV Q4H PRN PRN Reason: PAIN - MILD Ondansetron HCl (Zofran Inj*) 4 mg IV Q4H PRN PRN Reason: NAUSEA/VOMITING Pantoprazole Sodium (Protonix Iv*) 40 mg IV BID [facility] Last Admin: 06/06/18 07:54 Dose: 40 mg Pravastatin Sodium (Pravachol (Nf)) 10 mg PO 1700 [facility] Last Admin: 06/05/18 17:52 Dose: 10 mg Vital Signs - 8 hr 06/06/18 06/06/18 06/06/18 07:40 08:00 10:43 Temperature 97.7 F 98.3 F Pulse Rate 84 89 Respiratory 18 16 20 Rate Blood Pressure 124/72 117/78 (mmHg) O2 Sat by Pulse 95 96 Oximetry 06/06/18 06/06/18 06/06/18 10:47 10:48 11:09 Temperature 98 F 98.1 F Pulse Rate 91 93 75 Respiratory 16 Rate Blood Pressure 117/78 115/77 119/69 (mmHg) O2 Sat by Pulse 95 96 Oximetry Oxygen Devices in Use Now: None Appearance: alert, NAD Eyes: No Scleral Icterus, PERRLA Ears/Nose/Mouth/Throat: NL Teeth, Lips, Gums, Mucous Membranes Moist Neck: NL Appearance and Movements; NL JVP, Trachea Midline Respiratory: Symmetrical Chest Expansion and Respiratory Effort, Clear to Auscultation Cardiovascular: NL Sounds; No Murmurs; No JVD, RRR, No Edema Abdominal: - - firm with moderate distension, hypoactive BS Extremities: No Edema, No Clubbing, Cyanosis Skin: No Rash or Ulcers Neurological: Alert and Oriented x 3 Nutrition: Taking PO's Result Diagrams: 06/05/18 20:58 06/04/18 06:53 Microbiology and Other Data: Microbiology 06/03/18 14:37 Stool Occult Blood (KEYUR) - Final Stool Assess/Plan/Problems-Billing Assessment: This is a 68 year old male with hx of HTN, GERD that presented to ED with complaints of bloody stools, admitted for r/o GI bleeding. - Patient Problems (1) Anemia Code(s): D64.9 - ANEMIA, UNSPECIFIED SNOMED Code(s): 905811551 Comment: - With report of bloody diarrhea, acute on chronic iron deficiency anemia - s/p EGD with polypectomy and colonoscopy 06/05, no active bleeding - H&H stabilized - Had IV venofer last night, recommend restarting iron supplements at home ( has needed this in the past) (2) Small bowel obstruction Code(s): K56.609 - UNSP INTESTNL OBST, UNSP TO PARTIAL VERSUS COMPLETE OBST SNOMED Code(s): 040405211 Comment: - Flat plate of abdomen today given new distension which reveals SBO - Communicated with Dr. Macedo of new findings - Surgery consult placed - NPO now - Not vomiting and no complaint of nausea as yet, will defer to surgery on potential NG tube placement (3) GERD (gastroesophageal reflux disease) Code(s): K21.9 - GASTRO-ESOPHAGEAL REFLUX DISEASE WITHOUT ESOPHAGITIS SNOMED Code(s): 867595626 Comment: - With noted hiatal hernia on EGD yesterday - PPI 40mg IV BID while hospitalized (4) Hyperlipidemia Code(s): E78.5 - HYPERLIPIDEMIA, UNSPECIFIED SNOMED Code(s): 87507298 Comment: - On statin (5) Hypertension Code(s): I10 - ESSENTIAL (PRIMARY) HYPERTENSION SNOMED Code(s): 67056318 Comment: - BP was low overnight, now resolved - Hold atenolol (6) History of colon resection Code(s): Z90.49 - ACQUIRED ABSENCE OF OTHER SPECIFIED PARTS OF DIGESTIVE TRACT SNOMED Code(s): 867888867 Comment: - PMHx of anticoagulation, anemia, GIB and possible inflammatory bowel disease ; had resection in 2016 (7) DVT prophylaxis Code(s): DHN7178 - SNOMED Code(s): 370363894 Comment: - SCDs ambulate (8) Patient is full code Code(s): Z78.9 - OTHER SPECIFIED HEALTH STATUS SNOMED Code(s): 981272669 Status and Disposition: Inpatient, dispo TBD.
--- NOTE | 2018-06-06 13:17 | PN ---
Subjective Date of Service: 06/05/18 Interval History: Patient seen and examined. Feeling well. Tolerating meals, no new bleeding. No n /v/d. Objective Active Medications: Amlodipine Besylate (Norvasc Tab*) 2.5 mg PO DAILY [facility] Last Admin: 06/06/18 07:54 Dose: 2.5 mg Atenolol (Tenormin Tab*) 50 mg PO DAILY [facility] Last Admin: 06/06/18 07:54 Dose: 50 mg Sodium Chloride (Ns 0.9% 1000 Ml) 1,000 mls @ 125 mls/hr IV PER RATE [facility] Last Admin: 06/06/18 07:40 Dose: 125 mls/hr Morphine Sulfate (Morphine Vial*) 1 mg IV Q4H PRN PRN Reason: PAIN - MILD Ondansetron HCl (Zofran Inj*) 4 mg IV Q4H PRN PRN Reason: NAUSEA/VOMITING Pantoprazole Sodium (Protonix Iv*) 40 mg IV BID [facility] Last Admin: 06/06/18 07:54 Dose: 40 mg Pravastatin Sodium (Pravachol (Nf)) 10 mg PO 1700 [facility] Last Admin: 06/05/18 17:52 Dose: 10 mg Vital Signs - 8 hr 06/06/18 06/06/18 06/06/18 07:40 08:00 10:43 Temperature 97.7 F 98.3 F Pulse Rate 84 89 Respiratory 18 16 20 Rate Blood Pressure 124/72 117/78 (mmHg) O2 Sat by Pulse 95 96 Oximetry 06/06/18 06/06/18 06/06/18 10:47 10:48 11:09 Temperature 98 F 98.1 F Pulse Rate 91 93 75 Respiratory 16 Rate Blood Pressure 117/78 115/77 119/69 (mmHg) O2 Sat by Pulse 95 96 Oximetry Oxygen Devices in Use Now: None Appearance: alert, NAD Eyes: No Scleral Icterus, PERRLA Ears/Nose/Mouth/Throat: NL Teeth, Lips, Gums Neck: NL Appearance and Movements; NL JVP, Trachea Midline Respiratory: Symmetrical Chest Expansion and Respiratory Effort, Clear to Auscultation Cardiovascular: NL Sounds; No Murmurs; No JVD, No Edema Abdominal: NL Sounds; No Tenderness; No Distention, No Hepatosplenomegaly Lymphatic: No Cervical Adenopathy Extremities: No Edema, No Clubbing, Cyanosis Skin: No Rash or Ulcers Neurological: Alert and Oriented x 3, NL Sensation Nutrition: Taking PO's Result Diagrams: 06/05/18 20:58 06/04/18 06:53 Microbiology and Other Data: Microbiology 06/03/18 14:37 Stool Occult Blood (KEYUR) - Final Stool Assess/Plan/Problems-Billing Assessment: This is a 68 year old male with hx of HTN, GERD that presented to ED with complaints of bloody stools, admitted for r/o GI bleeding. - Patient Problems (1) Anemia Code(s): D64.9 - ANEMIA, UNSPECIFIED SNOMED Code(s): 642010901 Comment: - With report of bloody diarrhea, acute on chronic iron deficiency anemia - s/p EGD with polypectomy and colonoscopy this admission no active bleeding - H&H stabilized - Give IV venofer tonight and restart iron supplements for discharge (2) GERD (gastroesophageal reflux disease) Code(s): K21.9 - GASTRO-ESOPHAGEAL REFLUX DISEASE WITHOUT ESOPHAGITIS SNOMED Code(s): 088462472 Comment: - With noted hiatal hernia on EGD yesterday - PPI 40mg IV BID while hospitalized (3) Hyperlipidemia Code(s): E78.5 - HYPERLIPIDEMIA, UNSPECIFIED SNOMED Code(s): 72561854 Comment: - On statin (4) Hypertension Code(s): I10 - ESSENTIAL (PRIMARY) HYPERTENSION SNOMED Code(s): 63484628 Comment: - Stable on atenolol (5) History of colon resection Code(s): Z90.49 - ACQUIRED ABSENCE OF OTHER SPECIFIED PARTS OF DIGESTIVE TRACT SNOMED Code(s): 103241486 Comment: - PMHx of anticoagulation, anemia, GIB and possible inflammatory bowel disease ; had resection in 2016 (6) DVT prophylaxis Code(s): GAT5392 - SNOMED Code(s): 485370260 Comment: - SCDs ambulate (7) Patient is full code Code(s): Z78.9 - OTHER SPECIFIED HEALTH STATUS SNOMED Code(s): 588105032 Status and Disposition: Discharge tonight after IV venofer and iron studies.
[2018-06-06] MEDS: CMCS:Pravastatin (NF) 20 MG TAB PO SCH (17:31)
--- NOTE | 2018-06-07 03:52 | CONS ---
CONSULTATION REPORT: DATE OF CONSULT: 06/06/18 SERVICE: General Surgery. ATTENDING SURGEON: Coby Sams MD. REASON FOR CONSULT: Small bowel obstruction. HISTORY OF PRESENT ILLNESS: Mr. Barrett is a 68-year-old gentleman with a history of hypertension, hyperlipidemia and GERD, small bowel resection and exploratory laparotomy for a small bowel obstruction in approximately 2015. He was admitted to the medicine service on 06/03/18 for melena and he underwent a workup with Gastroenterology that included an upper endoscopy as well as a colonoscopy. The upper endoscopy did not localize any bleeding and the colonoscopy was incomplete given the poor prep and the inability to pass the colonoscope through and up to the terminal ileum. The colonoscopy was done on 06/04/18 and then the next day, the patient says that he was doing well. He was passing flatus, eating normally, but after dinner yesterday evening, he started to feel distended. This morning, an abdominal x-ray was performed that showed distended bowel confirming for a small bowel obstruction. The patient notes that he has had a recent small bowel obstruction and he was hospitalized for this, but it resolved on its own. The previous one in 2016 did require exploratory laparotomy. Currently, the patient is not nauseous. He is not vomiting. He feels some discomfort when he tries to get off and out of bed and he last passed flatus this morning around 7:30 a.m. He has not had any diarrhea since yesterday and yesterday he did say that it was darkish in appearance. PAST MEDICAL HISTORY: 1. Hypertension. 2. Hyperlipidemia. 3. GERD. 4. Small bowel obstruction. PAST SURGICAL HISTORY: 1. Small bowel resection. 2. Exploratory laparotomy for bowel obstruction. 3. Right inguinal hernia repair. MEDICATIONS: 1. Amlodipine. 2. Atenolol. 3. Famotidine. 4. Pravastatin. ALLERGIES: No known drug allergies. FAMILY HISTORY: Noncontributory. SOCIAL HISTORY: The patient lives at home with his . He denies smoking. REVIEW OF SYSTEMS: Negative except for some abdominal discomfort. PHYSICAL EXAM: Vital Signs: Temperature is 98.8, pulse is 83, respiratory rate is 20, O2 sat 99% O2 on room air, blood pressure is 146/78. General: This is an elderly male, lying comfortably in bed, in no apparent distress. HEENT: Normocephalic, atraumatic. Abdomen: Soft, it is distended and tympanitic to percussion, it is nontender, no palpable masses. DIAGNOSTIC STUDIES/LAB DATA: Laboratory values: No current labs. Radiology: Abdominal x-ray from 06/06/18 demonstrates small bowel obstruction with small bowel dilatation with air-fluid levels and a right abdominal bowel anastomosis staple line, negative for free air. ASSESSMENT AND PLAN: Mr. Barrett is a 68-year-old gentleman with a history of recurrent small bowel obstructions, status post multiple abdominal surgeries. Currently, he is comfortable. He is not having nausea or vomiting. He did pass flatus this morning. It is possible that some distention or adhesion of the bowel from his colonoscopy may have precipitated bowel obstruction. At this point, I would recommend conservative management and continue n.p.o. and IV fluids. If he begins vomiting or becomes more distended, I would recommend obtaining a CT abdomen and pelvis as well as placing NG tube. At this time, we will wait for return of bowel function before advancing diet. I spent approximately 20 minutes in the coordination and care of this patient, over half of which was face to face. [id number]/[facility] #: [id number] MTDD
[2018-06-07] MEDS: Atenolol TAB* 50 MG PO SCH (08:37)
[2018-06-07] MEDS: Pantoprazole IV* 40 MG IV SCH ×2 (08:37→20:42)
[2018-06-07] MEDS: amLODIPine TAB* 5 MG PO SCH (08:37)
[2018-06-07] MEDS: NS 0.9% 1000 ML** 1,000 ML IV SCH ×2 (08:42→16:06)
--- NOTE | 2018-06-07 13:19 | PN ---
Subjective Date of Service: 06/07/18 Interval History: Mr. Barrett is feeling slightly better today. He has had multiple BMs today, all liquid, but he feels like that is improving his pain. One episode of nausea this morning. Still feeling bloated and generally uncomfortable. Denies CP, SOB , vomiting. is at the bedside. Family History: Unchanged from Admission Social History: Unchanged from Admission Past Medical History: Unchanged from Admission Objective Active Medications: Amlodipine Besylate (Norvasc Tab*) 2.5 mg PO DAILY [facility] Atenolol (Tenormin Tab*) 50 mg PO DAILY [facility] Sodium Chloride (Ns 0.9% 1000 Ml) 1,000 mls @ 125 mls/hr IV PER RATE [facility] Morphine Sulfate (Morphine Vial*) 1 mg IV Q4H PRN PAIN - MILD Ondansetron HCl (Zofran Inj*) 4 mg IV Q4H PRN NAUSEA/VOMITING Pantoprazole Sodium (Protonix Iv*) 40 mg IV BID [facility] Pravastatin Sodium (Pravachol (Nf)) 10 mg PO 1700 [facility] Vital Signs - 8 hr 06/07/18 06/07/18 06:43 08:00 Temperature 98.0 F Pulse Rate 81 Respiratory 18 16 Rate Blood Pressure 135/77 (mmHg) O2 Sat by Pulse 97 Oximetry Oxygen Devices in Use Now: None Appearance: Elderly male lying in bed in NAD Eyes: No Scleral Icterus Ears/Nose/Mouth/Throat: Mucous Membranes Moist Neck: NL Appearance and Movements; NL JVP, Trachea Midline Respiratory: Symmetrical Chest Expansion and Respiratory Effort, Clear to Auscultation Cardiovascular: NL Sounds; No Murmurs; No JVD, RRR Abdominal: - - Tender to LUQ and LLQ; BS normoactive Extremities: No Edema Skin: No Rash or Ulcers Neurological: Alert and Oriented x 3 Lines/Tubes/Other Access: Clean, Dry and Intact Peripheral IV Result Diagrams: 06/05/18 20:58 06/04/18 06:53 Assess/Plan/Problems-Billing Assessment: Mr. Barrett is a 68 yo M with PMH of HTN, HLD, and GERD who presented to ED with complaints of bloody stools, admitted for r/o GI bleeding now resolved and has developed a SBO. - Patient Problems (1) Small bowel obstruction Code(s): K56.609 - UNSP INTESTNL OBST, UNSP TO PARTIAL VERSUS COMPLETE OBST Comment: - Flat plate of abdomen revealed SBO - Surgery following; recommends to hold off on NG tube unless vomiting, conservative management - NPO for now - Continue IVF, Zofran (2) Acute blood loss anemia Code(s): D62 - ACUTE POSTHEMORRHAGIC ANEMIA Comment: - With report of bloody diarrhea, acute on chronic iron deficiency anemia - S/p EGD with polypectomy and colonoscopy this admission; no active bleeding - H&H stabilized - Start ferrous sulfate (3) Lower GI bleeding Code(s): K92.2 - GASTROINTESTINAL HEMORRHAGE, UNSPECIFIED Comment: - Resolved - S/p EGD and colonoscopy, but no source of bleeding found (4) GERD (gastroesophageal reflux disease) Code(s): K21.9 - GASTRO-ESOPHAGEAL REFLUX DISEASE WITHOUT ESOPHAGITIS Comment : - With noted hiatal hernia on EGD - Continue IV pantoprazole (5) Hypertension Code(s): I10 - ESSENTIAL (PRIMARY) HYPERTENSION Comment: - Slightly hypertensive, SBP 130-140s - Continue atenolol; increase amlodipine (6) Hyperlipidemia Code(s): E78.5 - HYPERLIPIDEMIA, UNSPECIFIED Comment: - Continue pravastatin (7) DVT prophylaxis Comment: - SCDs (8) Full code status Code(s): Z78.9 - OTHER SPECIFIED HEALTH STATUS Comment: Status and Disposition: Inpatient. Anticipate d/c home when SBO is resolved. Attending: Thao Lomas
--- NOTE | 2018-06-07 15:33 | PN ---
Progress Note - Progress Note Date of Service: 06/07/18 Note: Surgery progress note S: Patient is doing well. He says he feels a little less bloated. He had flatus today and loose liquid brown stool. O: Vital Signs: Temp Pulse Resp BP Pulse Ox 98.3 F 79 20 141/78 97 06/07/18 11:43 06/07/18 11:43 06/07/18 11:43 06/07/18 11:43 06/07/18 11:43 Laboratory Last Values WBC 6.2 10^3/ul (3.5-10.8) 06/04/18 06:53 RBC 2.78 10^6/ul (4.00-5.40) L 06/04/18 06:53 Hgb 8.3 g/dl (14.0-18.0) L 06/05/18 20:58 Hct 26 % (42-52) L 06/05/18 20:58 MCV 88 fL (80-94) 06/04/18 06:53 MCH 29 pg (27-31) 06/04/18 06:53 MCHC 33 g/dl (31-36) 06/04/18 06:53 RDW 13 % (10.5-15) 06/04/18 06:53 Plt Count 221 10^3/ul (150-450) 06/04/18 06:53 MPV 10.5 fL (7.4-10.4) H 06/04/18 06:53 Neut % (Auto) 75.6 % 06/04/18 06:53 Lymph % (Auto) 15.8 % 06/04/18 06:53 [place] % (Auto) 6.5 % 06/04/18 06:53 Eos % (Auto) 1.4 % 06/04/18 06:53 Baso % (Auto) 0.7 % 06/04/18 06:53 Absolute Neuts (auto) 4.7 10^3/ul (1.5-7.7) 06/04/18 06:53 Absolute Lymphs (auto) 1.0 10^3/ul (1.0-4.8) 06/04/18 06:53 Absolute Monos (auto) 0.4 10^3/ul (0-0.8) 06/04/18 06:53 Absolute Eos (auto) 0.1 10^3/ul (0-0.6) 06/04/18 06:53 Absolute Basos (auto) 0 10^3/ul (0-0.2) 06/04/18 06:53 Absolute Nucleated RBC 0 10^3/ul 06/04/18 06:53 Nucleated RBC % 0 06/04/18 06:53 INR (Anticoag Therapy) 0.90 (0.77-1.02) 06/03/18 12:47 APTT 29.6 seconds (26.0-36.3) 06/03/18 12:47 Sodium 141 mmol/L (135-145) 06/04/18 06:53 Potassium 4.1 mmol/L (3.5-5.0) 06/04/18 06:53 Chloride 110 mmol/L (101-111) 06/04/18 06:53 Carbon Dioxide 28 mmol/L (22-32) 06/04/18 06:53 Anion Gap 3 mmol/L (2-11) 06/04/18 06:53 BUN 24 mg/dL (6-24) 06/04/18 06:53 Creatinine 1.09 mg/dL (0.67-1.17) 06/04/18 06:53 Est GFR ( Amer) 81.6 (>60) 06/04/18 06:53 Est GFR (Non-Af Amer) 67.5 (>60) 06/04/18 06:53 BUN/Creatinine Ratio 22.0 (8-20) H 06/04/18 06:53 Glucose 100 mg/dL (70-100) 06/04/18 06:53 Calcium 8.3 mg/dL (8.6-10.3) L 06/04/18 06:53 Iron 22 ug/dL (50-212) L 06/05/18 07:59 TIBC 379 mcg/dL (250-450) 06/05/18 07:59 % Saturation 6 % (15-55) L 06/05/18 07:59 Unsat Iron Binding < 364 ug/dL 06/05/18 07:59 Transferrin 271 mg/dL (203-362) 06/05/18 07:59 Total Bilirubin 0.30 mg/dL (0.2-1.0) 06/03/18 12:47 AST 15 U/L (13-39) 06/03/18 12:47 ALT 11 U/L (7-52) 06/03/18 12:47 Alkaline Phosphatase 56 U/L (34-104) 06/03/18 12:47 Total Protein 6.3 g/dL (6.4-8.9) L 06/03/18 12:47 Albumin 4.1 g/dL (3.2-5.2) 06/03/18 12:47 Globulin 2.2 g/dL (2-4) 06/03/18 12:47 Albumin/Globulin Ratio 1.9 (1-3) 06/03/18 12:47 Blood Type A Positive 06/03/18 12:47 Antibody Screen Negative 06/03/18 12:47 Intake & Output 06/07/18 06/07/18 06/07/18 06:59 14:59 22:59 Intake Total Balance Intake: IV Fluids NS (0.9%) Oral Physical exam: Abd soft, non tender, distended with tympany to percussion A/P: 68 M with SBO s/p colonoscopy and EGD for work up for GIB. - SBO symptoms appear to be improving and patient is demonstrating some return of bowel function. He remains rather distended. If he continues to improve would start sips of clears tomorrow
[2018-06-07] MEDS: CMCS:Pravastatin (NF) 20 MG TAB PO SCH (16:08)
[2018-06-07] MEDS: Ferrous Sulfate TAB* 325 MG PO SCH (20:41)
[2018-06-08] MEDS: NS 0.9% 1000 ML** 1,000 ML IV SCH ×3 (00:07→16:22)
[2018-06-08 07:08] LABS: ABS Basophils 0 10^3/ul (0-0.2); ABS Eosinophils 0.2 10^3/ul (0-0.6); ABS Monocytes 0.8 10^3/ul (0-0.8); ABS Neutrophils 2.7 10^3/ul (1.5-7.7); ABS Nucleated RBC 0 10^3/ul; Eosinophil % 3.9 %; Hematocrit 23 % (42-52); Hemoglobin 7.7 g/dl (14.0-18.0); Mean Corpuscular HGB Conc 33 g/dl (31-36); Mean Corpuscular Hemoglobin 29 pg (27-31); Mean Corpuscular Volume 88 fL (80-94); Mean Platelet Volume 9.9 fL (7.4-10.4); Nucleated Red Blood Cells % 0.1; Platelet Count 254 10^3/ul (150-450); Red Blood Count 2.67 10^6/ul (4.00-5.40); Red Cell Distribution Width 13 % (10.5-15); White Blood Count 4.6 10^3/ul (3.5-10.8)
--- NOTE | 2018-06-08 09:08 | PN ---
Subjective Date of Service: 06/08/18 Interval History: Mr. Barrett is feeling better today. He has less bloating. Denies abd pain, N/ V. Reports a small formed BM this morning. Would like to eat when/if possible. at bedside. Family History: Unchanged from Admission Social History: Unchanged from Admission Past Medical History: Unchanged from Admission Objective Active Medications: Amlodipine Besylate (Norvasc Tab*) 5 mg PO DAILY [facility] Atenolol (Tenormin Tab*) 50 mg PO DAILY [facility] Ferrous Sulfate (Ferrous Sulfate Tab*) 325 mg PO BID [facility] Sodium Chloride (Ns 0.9% 1000 Ml) 1,000 mls @ 125 mls/hr IV PER RATE [facility] Morphine Sulfate (Morphine Vial*) 1 mg IV Q4H PRN PAIN - MILD Ondansetron HCl (Zofran Inj*) 4 mg IV Q4H PRN NAUSEA/VOMITING Pantoprazole Sodium (Protonix Iv*) 40 mg IV BID [facility] Pravastatin Sodium (Pravachol (Nf)) 10 mg PO 1700 [facility] Vital Signs - 8 hr 06/08/18 06/08/18 06/08/18 03:56 08:00 08:27 Temperature 98.3 F 96.6 F Pulse Rate 64 65 Respiratory 16 18 18 Rate Blood Pressure 127/65 137/73 (mmHg) O2 Sat by Pulse 97 98 Oximetry Oxygen Devices in Use Now: None Appearance: Middle-aged male laying in bed in NAD Eyes: No Scleral Icterus Ears/Nose/Mouth/Throat: Mucous Membranes Moist Neck: NL Appearance and Movements; NL JVP, Trachea Midline Respiratory: Symmetrical Chest Expansion and Respiratory Effort, Clear to Auscultation Cardiovascular: NL Sounds; No Murmurs; No JVD, RRR Abdominal: - - Normoactive BS; Mild tenderness to LUQ and LLQ Extremities: No Edema Skin: No Rash or Ulcers Neurological: Alert and Oriented x 3 Lines/Tubes/Other Access: Clean, Dry and Intact Peripheral IV Result Diagrams: 06/08/18 06:51 06/04/18 06:53 Assess/Plan/Problems-Billing Assessment: Mr. Barrett is a 68 yo M with PMH of HTN, HLD, and GERD who presented to ED with complaints of bloody stools, admitted for r/o GI bleeding now resolved and has developed a SBO. - Patient Problems (1) Small bowel obstruction Code(s): K56.609 - UNSP INTESTNL OBST, UNSP TO PARTIAL VERSUS COMPLETE OBST Comment: - Flat plate of abdomen revealed SBO - Surgery following; recommends to hold off on NG tube, conservative management - Advance to clear liquids and advance as tolerated per Surgery recommendations - Continue IVF, Zofran (2) Acute blood loss anemia Code(s): D62 - ACUTE POSTHEMORRHAGIC ANEMIA Comment: - With report of bloody diarrhea, acute on chronic iron deficiency anemia - S/p EGD with polypectomy and colonoscopy this admission; no active bleeding - H&H stabilized - Continue ferrous sulfate (3) Lower GI bleeding Code(s): K92.2 - GASTROINTESTINAL HEMORRHAGE, UNSPECIFIED Comment: - Resolved - S/p EGD and colonoscopy, but no source of bleeding found (4) GERD (gastroesophageal reflux disease) Code(s): K21.9 - GASTRO-ESOPHAGEAL REFLUX DISEASE WITHOUT ESOPHAGITIS Comment : - With noted hiatal hernia on EGD - Continue IV pantoprazole (5) Hypertension Code(s): I10 - ESSENTIAL (PRIMARY) HYPERTENSION Comment: - Normotensive, SBP 120-130s - Continue atenolol, amlodipine (6) Hyperlipidemia Code(s): E78.5 - HYPERLIPIDEMIA, UNSPECIFIED Comment: - Continue pravastatin (7) DVT prophylaxis Comment: - SCDs (8) Full code status Code(s): Z78.9 - OTHER SPECIFIED HEALTH STATUS Comment: Status and Disposition: Inpatient. Anticipate d/c home when SBO is resolved, possibly tomorrow if he is able to tolerate solids. Attending: Thao Lomas
[2018-06-08] MEDS: amLODIPine TAB* 5 MG PO SCH (11:08)
[2018-06-08] MEDS: Ferrous Sulfate TAB* 325 MG PO SCH ×2 (11:08→21:36)
--- NOTE | 2018-06-08 11:08 | PN ---
Progress Note - Progress Note Date of Service: 06/08/18 Note: Surgery Progress Note S: Patient did well overnight. Had flatus, is less distended and feels less bloated. He had small BM as well. Overall feels much better. O: Vital Signs: Temp Pulse Resp BP Pulse Ox 96.6 F 65 18 137/73 98 06/08/18 08:27 06/08/18 08:27 06/08/18 08:27 06/08/18 08:27 06/08/18 08:27 Laboratory Last Values WBC 4.6 10^3/ul (3.5-10.8) 06/08/18 06:51 RBC 2.67 10^6/ul (4.00-5.40) L 06/08/18 06:51 Hgb 7.7 g/dl (14.0-18.0) L 06/08/18 06:51 Hct 23 % (42-52) L 06/08/18 06:51 MCV 88 fL (80-94) 06/08/18 06:51 MCH 29 pg (27-31) 06/08/18 06:51 MCHC 33 g/dl (31-36) 06/08/18 06:51 RDW 13 % (10.5-15) 06/08/18 06:51 Plt Count 254 10^3/ul (150-450) 06/08/18 06:51 MPV 9.9 fL (7.4-10.4) 06/08/18 06:51 Neut % (Auto) 58.2 % 06/08/18 06:51 Lymph % (Auto) 21.0 % 06/08/18 06:51 [place] % (Auto) 16.4 % 06/08/18 06:51 Eos % (Auto) 3.9 % 06/08/18 06:51 Baso % (Auto) 0.5 % 06/08/18 06:51 Absolute Neuts (auto) 2.7 10^3/ul (1.5-7.7) 06/08/18 06:51 Absolute Lymphs (auto) 1.0 10^3/ul (1.0-4.8) 06/08/18 06:51 Absolute Monos (auto) 0.8 10^3/ul (0-0.8) 06/08/18 06:51 Absolute Eos (auto) 0.2 10^3/ul (0-0.6) 06/08/18 06:51 Absolute Basos (auto) 0 10^3/ul (0-0.2) 06/08/18 06:51 Absolute Nucleated RBC 0 10^3/ul 06/08/18 06:51 Nucleated RBC % 0.1 06/08/18 06:51 INR (Anticoag Therapy) 0.90 (0.77-1.02) 06/03/18 12:47 APTT 29.6 seconds (26.0-36.3) 06/03/18 12:47 Sodium 141 mmol/L (135-145) 06/04/18 06:53 Potassium 4.1 mmol/L (3.5-5.0) 06/04/18 06:53 Chloride 110 mmol/L (101-111) 06/04/18 06:53 Carbon Dioxide 28 mmol/L (22-32) 06/04/18 06:53 Anion Gap 3 mmol/L (2-11) 06/04/18 06:53 BUN 24 mg/dL (6-24) 06/04/18 06:53 Creatinine 1.09 mg/dL (0.67-1.17) 06/04/18 06:53 Est GFR ( Amer) 81.6 (>60) 06/04/18 06:53 Est GFR (Non-Af Amer) 67.5 (>60) 06/04/18 06:53 BUN/Creatinine Ratio 22.0 (8-20) H 06/04/18 06:53 Glucose 100 mg/dL (70-100) 06/04/18 06:53 Calcium 8.3 mg/dL (8.6-10.3) L 06/04/18 06:53 Iron 22 ug/dL (50-212) L 06/05/18 07:59 TIBC 379 mcg/dL (250-450) 06/05/18 07:59 % Saturation 6 % (15-55) L 06/05/18 07:59 Unsat Iron Binding < 364 ug/dL 06/05/18 07:59 Transferrin 271 mg/dL (203-362) 06/05/18 07:59 Total Bilirubin 0.30 mg/dL (0.2-1.0) 06/03/18 12:47 AST 15 U/L (13-39) 06/03/18 12:47 ALT 11 U/L (7-52) 06/03/18 12:47 Alkaline Phosphatase 56 U/L (34-104) 06/03/18 12:47 Total Protein 6.3 g/dL (6.4-8.9) L 06/03/18 12:47 Albumin 4.1 g/dL (3.2-5.2) 06/03/18 12:47 Globulin 2.2 g/dL (2-4) 06/03/18 12:47 Albumin/Globulin Ratio 1.9 (1-3) 06/03/18 12:47 Blood Type A Positive 06/03/18 12:47 Antibody Screen Negative 06/03/18 12:47 Intake & Output 06/07/18 06/08/18 06/08/18 22:59 06:59 14:59 Intake Total 1254 1732 0 Balance 1254 1732 0 Intake: IV Fluids 1254 1732 NS (0.9%) 1254 1732 Oral 0 0 0 Other: Estimated Void Large Medium # Bowel Movements 0 # Voids 0 1 2 Physical exam: abdomen soft, less distended, with some tympany A/P: 68 M with SBO s/p cscope and EGD for work up of GIB. - SBO appears to be resolving clinically. Recommend starting on CLD and advancing as tolerated. - Surgery will sign off now. Please feel free to call back with any questions or as needed.
[2018-06-08] MEDS: Atenolol TAB* 50 MG PO SCH (11:09)
[2018-06-08] MEDS: Pantoprazole IV* 40 MG IV SCH ×2 (11:09→21:38)
[2018-06-08] MEDS: CMCS:Pravastatin (NF) 20 MG TAB PO SCH (16:23)
[2018-06-09 07:19] LABS: ABS Basophils 0 10^3/ul (0-0.2); ABS Eosinophils 0.1 10^3/ul (0-0.6); ABS Lymphocytes 0.8 10^3/ul (1.0-4.8); ABS Monocytes 0.8 10^3/ul (0-0.8); ABS Neutrophils 3.4 10^3/ul (1.5-7.7); ABS Nucleated RBC 0 10^3/ul; Eosinophil % 2.5 %; Hematocrit 26 % (42-52); Hemoglobin 8.3 g/dl (14.0-18.0); Lymphocyte % 15.3 %; Mean Corpuscular HGB Conc 32 g/dl (31-36); Mean Corpuscular Hemoglobin 29 pg (27-31); Mean Corpuscular Volume 88 fL (80-94); Mean Platelet Volume 9.4 fL (7.4-10.4); Nucleated Red Blood Cells % 0; Platelet Count 310 10^3/ul (150-450); Red Blood Count 2.92 10^6/ul (4.00-5.40); Red Cell Distribution Width 13 % (10.5-15); White Blood Count 5.2 10^3/ul (3.5-10.8)
[2018-06-09] MEDS: Ferrous Sulfate TAB* 325 MG PO SCH (10:43)
[2018-06-09] MEDS: amLODIPine TAB* 5 MG PO SCH (10:43)
[2018-06-09] MEDS: Pantoprazole IV* 40 MG IV SCH ×2 (10:43→21:24)
[2018-06-09] MEDS: Atenolol TAB* 50 MG PO SCH (10:43)
--- NOTE | 2018-06-09 16:11 | PN ---
Subjective Date of Service: 06/09/18 Interval History: Mr. Barrett is feeling better today. He had an uneventful night. He tolerated clears for dinner last night and full liquids at breakfast. He has not had any further abd pain or N/V. No bloating. He is anxious to go home. Family History: Unchanged from Admission Social History: Unchanged from Admission Past Medical History: Unchanged from Admission Objective Active Medications: Amlodipine Besylate (Norvasc Tab*) 5 mg PO DAILY [facility] Atenolol (Tenormin Tab*) 50 mg PO DAILY [facility] Ferrous Sulfate (Ferrous Sulfate Tab*) 325 mg PO BID [facility] Morphine Sulfate (Morphine Vial*) 1 mg IV Q4H PRN PAIN - MILD Ondansetron HCl (Zofran Inj*) 4 mg IV Q4H PRN NAUSEA/VOMITING Pantoprazole Sodium (Protonix Iv*) 40 mg IV BID [facility] Pravastatin Sodium (Pravachol (Nf)) 10 mg PO 1700 [facility] Vital Signs - 8 hr 06/09/18 06/09/18 06/09/18 08:23 08:30 11:24 Temperature 97.7 F 97.7 F 97.6 F Pulse Rate 64 64 66 Respiratory 16 16 16 Rate Blood Pressure 123/59 123/59 107/61 (mmHg) O2 Sat by Pulse 16 97 99 Oximetry Oxygen Devices in Use Now: None Appearance: Middle-aged male laying in bed in NAD Eyes: No Scleral Icterus Ears/Nose/Mouth/Throat: Mucous Membranes Moist Neck: NL Appearance and Movements; NL JVP, Trachea Midline Respiratory: Symmetrical Chest Expansion and Respiratory Effort, Clear to Auscultation Cardiovascular: NL Sounds; No Murmurs; No JVD, RRR Abdominal: - - Minimal tenderness to palpation throughout Extremities: No Edema Skin: No Rash or Ulcers Neurological: Alert and Oriented x 3 Lines/Tubes/Other Access: Clean, Dry and Intact Peripheral IV Nutrition: Taking PO's Result Diagrams: 06/09/18 07:09 06/04/18 06:53 Assess/Plan/Problems-Billing Assessment: Mr. Barrett is a 68 yo M with PMH of HTN, HLD, and GERD who presented to ED with complaints of bloody stools, admitted for r/o GI bleeding now resolved and has developed a SBO. - Patient Problems (1) Small bowel obstruction Code(s): K56.609 - UNSP INTESTNL OBST, UNSP TO PARTIAL VERSUS COMPLETE OBST Comment: - Flat plate of abdomen revealed SBO after resolution of GI bleed - Surgery following; recommends conservative management - Advance diet as tolerated; has tolerated soft diet well - Will check abd CT w/ contrast prior to d/c - Continue Zofran (2) Acute blood loss anemia Code(s): D62 - ACUTE POSTHEMORRHAGIC ANEMIA Comment: - With report of bloody diarrhea, acute on chronic iron deficiency anemia - S/p EGD with polypectomy and colonoscopy this admission; no active bleeding - H&H stabilized - Continue ferrous sulfate (3) Lower GI bleeding Code(s): K92.2 - GASTROINTESTINAL HEMORRHAGE, UNSPECIFIED Comment: - Resolved - S/p EGD and colonoscopy, but no source of bleeding found (4) GERD (gastroesophageal reflux disease) Code(s): K21.9 - GASTRO-ESOPHAGEAL REFLUX DISEASE WITHOUT ESOPHAGITIS Comment : - With noted hiatal hernia on EGD - Continue IV pantoprazole (5) Hypertension Code(s): I10 - ESSENTIAL (PRIMARY) HYPERTENSION Comment: - Normotensive, SBP 120-130s - Continue atenolol, amlodipine (6) Hyperlipidemia Code(s): E78.5 - HYPERLIPIDEMIA, UNSPECIFIED Comment: - Continue pravastatin (7) DVT prophylaxis Comment: - SCDs (8) Full code status Code(s): Z78.9 - OTHER SPECIFIED HEALTH STATUS Comment: Status and Disposition: Inpatient. Anticipate d/c home tomorrow. Attending: [place] Nam
[2018-06-09 16:52] LABS: Calcium 8.7 mg/dL (8.6-10.3); EGFR African American 82.5 (>60); EGFR Non-African American 68.2 (>60); Potassium 3.2 mmol/L (3.5-5.0)
[2018-06-09] MEDS ORDERED: KCL 20 MEQ/100 ML IVPREMIX* 20 MEQ/100 ML BAG IV ONE (16:55)
[2018-06-09] MEDS ORDERED: Potassium Chlor TAB* 20 MEQ TAB.ER PO ONE (16:55)
[2018-06-09] MEDS ORDERED: Iohexol 300* (CONTRAST) 10 ML SDV IV ONE (17:12)
[2018-06-09] MEDS: CMCS:Pravastatin (NF) 20 MG TAB PO SCH (21:33)
[2018-06-10] MEDS: Atenolol TAB* 50 MG PO SCH (08:13)
[2018-06-10] MEDS: Pantoprazole IV* 40 MG IV SCH ×2 (08:14→20:40)
[2018-06-10] MEDS: amLODIPine TAB* 5 MG PO SCH (08:14)
[2018-06-10 08:58] LABS: Calcium 8.7 mg/dL (8.6-10.3); EGFR African American 75.2 (>60); EGFR Non-African American 62.2 (>60); Magnesium 1.9 mg/dL (1.9-2.7); Potassium 3.6 mmol/L (3.5-5.0)
--- NOTE | 2018-06-10 09:28 | PN ---
Progress Note - Progress Note Date of Service: 06/10/18 SOAP: Subjective:HOSPITAL DAY #8 SBO,S/P GI BLEED []no nausea,he vomited yesterday after CT scan,no vomiting since;passed flatus today,last stool yesterday semiformed,minimal abd crampy pain LLQ;joel clears Objective:CT abd/pel 06/09/18 showed multiple loops of dilated lg and sm bowel with transition point proximal descending colon,Hosp asked for recall assessment ;Abd:hyperactive bs,softly distended,mildly tender to palpation LLQ,no guarding [] Assessment:persistent SBO on CT scan 06/09;Dr Sams updated [] Plan:CT scan 06/09/[address] Sams,she recommended NG but pt doesn't want it,I will order AXR and keep him NPO until we can get reading []
--- NOTE | 2018-06-10 11:46 | PN ---
Progress Note - Progress Note Date of Service: 06/10/18 Note: Surgery Progress Note I saw and examined the patient this morning and reviewed his CT and AXR. Yesterday had a roast beef sandwich and became more distended. This AM his is still passing flatus, has no pain and feels his distension is improving. He is non tender, and has tympany on exam. VSS. On CT his transition point is in descendoing colon making this concerning for a large bowel obstruction. Patient initially had come in with GIB and colonoscopy was incomplete due to poor prep. This is concerning for the possibility of an intraluminal mass. I spoke with medicine team about touching base with GI again to repeat a colonoscopy. Would keep patient NPO until he has more definitive evidence of return of bowel function.
--- NOTE | 2018-06-10 16:22 | PN ---
Subjective Date of Service: 06/10/18 Interval History: Mr. Barrett is not feeling well today. He is disappointed that his bowel obstruction has not resolved. He had some abd discomfort yesterday after eating a roast beef sandwich for lunch. Ho further discomfort or N/V today. He offers no complaints and has little to report. Family History: Unchanged from Admission Social History: Unchanged from Admission Past Medical History: Unchanged from Admission Objective Active Medications: Amlodipine Besylate (Norvasc Tab*) 5 mg PO DAILY [facility] Atenolol (Tenormin Tab*) 50 mg PO DAILY [facility] Ondansetron HCl (Zofran Inj*) 4 mg IV Q4H PRN NAUSEA/VOMITING Pantoprazole Sodium (Protonix Iv*) 40 mg IV BID [facility] Pravastatin Sodium (Pravachol (Nf)) 10 mg PO 1700 [facility] Vital Signs - 8 hr 06/10/18 06/10/18 06/10/18 11:29 14:35 14:37 Temperature 97.9 F 98 F Pulse Rate 66 79 67 Respiratory 16 17 Rate Blood Pressure 122/68 123/64 123/64 (mmHg) O2 Sat by Pulse 98 96 Oximetry Oxygen Devices in Use Now: None Appearance: Elderly male sitting in bed in NAD Eyes: No Scleral Icterus Ears/Nose/Mouth/Throat: Mucous Membranes Moist Neck: NL Appearance and Movements; NL JVP, Trachea Midline Respiratory: Symmetrical Chest Expansion and Respiratory Effort, Clear to Auscultation Cardiovascular: NL Sounds; No Murmurs; No JVD, RRR Abdominal: - - Hyperactive BS; tender to palpation throughout, particularly the LUQ Extremities: No Edema Skin: No Rash or Ulcers Neurological: Alert and Oriented x 3, NL Gait Lines/Tubes/Other Access: Clean, Dry and Intact Peripheral IV Result Diagrams: 06/09/18 07:09 06/10/18 08:05 Assess/Plan/Problems-Billing Assessment: Mr. Barrett is a 68 yo M with PMH of HTN, HLD, and GERD who presented to ED with complaints of bloody stools, admitted for r/o GI bleeding now resolved and has developed a SBO. - Patient Problems (1) Small bowel obstruction Code(s): K56.609 - UNSP INTESTNL OBST, UNSP TO PARTIAL VERSUS COMPLETE OBST Comment: - Flat plate of abdomen revealed SBO after resolution of GI bleed - CT yesterday showing persistent obstruction with transition point in the proximal descending colon, but no masses - Surgery following; recommends conservative management, f/u with GI as there is concern for possible intraluminal mass - GI following; appreciate further recommendations d/t concern for large bowel obstruction - NPO, restart IVF - Continue Zofran (2) Acute blood loss anemia Code(s): D62 - ACUTE POSTHEMORRHAGIC ANEMIA Comment: - With report of bloody diarrhea, acute on chronic iron deficiency anemia - S/p EGD with polypectomy and colonoscopy this admission; no active bleeding - H&H stabilized - Ferrous sulfate d/c'd by GI (3) Lower GI bleeding Code(s): K92.2 - GASTROINTESTINAL HEMORRHAGE, UNSPECIFIED Comment: - Resolved - S/p EGD and colonoscopy, but no source of bleeding found (4) GERD (gastroesophageal reflux disease) Code(s): K21.9 - GASTRO-ESOPHAGEAL REFLUX DISEASE WITHOUT ESOPHAGITIS Comment : - With noted hiatal hernia on EGD - Continue IV pantoprazole (5) Hypertension Code(s): I10 - ESSENTIAL (PRIMARY) HYPERTENSION Comment: - Normotensive, SBP 120s - Continue atenolol, amlodipine (6) Hyperlipidemia Code(s): E78.5 - HYPERLIPIDEMIA, UNSPECIFIED Comment: - Continue pravastatin (7) DVT prophylaxis Comment: - SCDs (8) Full code status Code(s): Z78.9 - OTHER SPECIFIED HEALTH STATUS Comment: Status and Disposition: Inpatient. Anticipate d/c home when bowel obstruction resolves. Attending: Fercho Sidhu
[2018-06-10] MEDS: NS 0.9% 1000 ML** 1,000 ML IV SCH (16:45)
[2018-06-10] MEDS: CMCS:Pravastatin (NF) 20 MG TAB PO SCH (17:58)
--- NOTE | 2018-06-10 18:31 | PN ---
Progress Note - Progress Note Date of Service: 06/10/18 Note: GASTROENTEROLOGY PROGRESS NOTE IE/S: - GI bleeding has resolved. - CT abdomen/pelvis demonstrating proximal descending colon transition point consistent with large bowel obstruction. - Patient reports last BM was yesterday AM. Not passing flatus. Feeling less distended and uncomfortable today. O: VSS GEN: Comfortable appearing. NAD. Pulm: breathing comfortably abd: Increased BS. Softly distended (mild). Non-tender. Labs reviewed. No CBC today but Hgb has been relatively stable. A/P: Mr Barrett is a 68yM with history of small bowel bleeding s/p small bowel resection (2005), who was initially admitted with recurrent GI bleeding. No source identified on EGD on 06/03. Colonoscopy on 06/04 performed to ascending colon. Looping and internal hernia in sigmoid region felt to be impacting ability to advance scope through to cecum. Preparation was noted to be relatively poor and not sufficient for complete polyp screening. No fresh or old blood noted. GI bleeding has resolved, but now patient seems to have developed large bowel obstruction with possible transition point in proximal descending colon. Based on Dr Ennis's procedure report from 06/04, there was concern for extrinsic compression (adhesions or internal hernia) involving the left colon. Colonoscope was able to advance through the area in question on CT scan without note made of any large polyp or masses, which would likely have been seen even in setting of relatively poor prep. Patient seems to be clinically improving today, although he does not yet have return of bowel function. Would not recommend repeat flex sig vs colonoscopy at this time given low suspicion for intraluminal disease causing obstruction based on recent endoscopic evaluation. Additionally, patient would not be a candidate for colonoscopy prep in setting of bowel obstruction. GI will continue to follow. Sadie Clark MD Gastroenterology
[2018-06-11] MEDS: NS 0.9% 1000 ML** 1,000 ML IV SCH ×2 (05:57→20:50)
[2018-06-11 07:17] LABS: ABS Basophils 0 10^3/ul (0-0.2); ABS Eosinophils 0.1 10^3/ul (0-0.6); ABS Neutrophils 5.9 10^3/ul (1.5-7.7); ABS Nucleated RBC 0 10^3/ul; Eosinophil % 1.3 %; Hematocrit 24 % (42-52); Hemoglobin 7.9 g/dl (14.0-18.0); Mean Corpuscular HGB Conc 33 g/dl (31-36); Mean Corpuscular Hemoglobin 29 pg (27-31); Mean Corpuscular Volume 88 fL (80-94); Mean Platelet Volume 9.7 fL (7.4-10.4); Nucleated Red Blood Cells % 0.1; Platelet Count 326 10^3/ul (150-450); Red Cell Distribution Width 14 % (10.5-15)
[2018-06-11 07:35] LABS: BUN/Creatinine Ratio 17.6 (8-20); Calcium 8.2 mg/dL (8.6-10.3); EGFR African American 82.5 (>60); EGFR Non-African American 68.2 (>60); Magnesium 1.9 mg/dL (1.9-2.7); Potassium 3.5 mmol/L (3.5-5.0)
[2018-06-11] MEDS ORDERED: Iron Sucrose* 200 MG in NS 0.9% 100 ML* 100 ML IVPB ONE (08:30)
[2018-06-11] MEDS: Atenolol TAB* 50 MG PO SCH (08:31)
[2018-06-11] MEDS: amLODIPine TAB* 5 MG PO SCH (08:31)
--- NOTE | 2018-06-11 09:10 | PN ---
Progress Note - Progress Note Date of Service: 06/11/18 Note: Surgery Progress Note S: Patient feels well. Feels less distended and is passing flatus but no bowel movements. No nausea or emesis. O: Vital Signs: Temp Pulse Resp BP Pulse Ox 97.6 F 66 16 124/64 100 06/11/18 07:20 06/11/18 07:20 06/11/18 07:20 06/11/18 07:20 06/11/18 07:20 Vital Signs - 24 hr 06/10/18 06/10/18 06/10/18 11:29 14:35 14:37 Temperature 97.9 F 98 F Pulse Rate 66 79 67 Respiratory 16 17 Rate Blood Pressure 122/68 123/64 123/64 (mmHg) O2 Sat by Pulse 98 96 Oximetry 06/10/18 06/10/18 06/10/18 16:07 16:08 19:26 Temperature 97.9 F 98.2 F Pulse Rate 69 73 Respiratory 17 18 Rate Blood Pressure 121/64 124/68 (mmHg) O2 Sat by Pulse 96 95 Oximetry 06/10/18 06/10/18 06/11/18 20:00 22:25 02:44 Temperature 99.0 F 98.4 F Pulse Rate 79 72 Respiratory 20 18 18 Rate Blood Pressure 122/72 122/64 (mmHg) O2 Sat by Pulse 95 96 Oximetry 06/11/18 07:20 Temperature 97.6 F Pulse Rate 66 Respiratory 16 Rate Blood Pressure 124/64 (mmHg) O2 Sat by Pulse 100 Oximetry Intake & Output 06/10/18 06/11/18 06/11/18 22:59 06:59 14:59 Intake Total 255 644 Balance 255 644 Intake: IV Fluids 255 644 NS (0.9%) 255 644 Other: # Bowel Movements 0 # Voids 0 0 Abd: less distended, soft, non tender A/P: 68 M admitted for GIB who developed large bowel obstruction as noted on CT abd/pelvis. - Patient with evidence of return of bowel function. Would recommend advancing diet slowly as patient failed last advancement. Would recommend starting sips of liquids today and if he is still doing well, then CLD tomorrow - GI saw patient yesterday and affirms that c-scope made it through to ascending colon without evidence of obstructing mass. They do not recommend repeat c-scope.
[2018-06-11] MEDS: Pantoprazole IV* 40 MG IV SCH ×2 (09:44→20:51)
--- NOTE | 2018-06-11 14:23 | PN ---
Subjective Date of Service: 06/11/18 Interval History: Patient is feeling better today. Patient has persistent abdominal pain and bloating but it is decreasing. Patient is passing flatus. Patient has not had a BM. Patient denies F/C, N/V, CP, SOB, dizziness on standing, or other pain. Patient is very hungry and anxious for his diet to be advanced. Family History: Unchanged from Admission Social History: Unchanged from Admission Past Medical History: Unchanged from Admission Objective Active Medications: Amlodipine Besylate (Norvasc Tab*) 5 mg PO DAILY [facility] Last Admin: 06/11/18 08:31 Dose: Not Given Atenolol (Tenormin Tab*) 50 mg PO DAILY [facility] Last Admin: 06/11/18 08:31 Dose: Not Given Sodium Chloride (Ns 0.9% 1000 Ml) 1,000 mls @ 75 mls/hr IV PER RATE [facility] Last Admin: 06/11/18 05:57 Dose: 75 mls/hr Ondansetron HCl (Zofran Inj*) 4 mg IV Q4H PRN PRN Reason: NAUSEA/VOMITING Last Admin: 06/09/18 17:19 Dose: 4 mg Pantoprazole Sodium (Protonix Iv*) 40 mg IV BID [facility] Last Admin: 06/11/18 09:44 Dose: 40 mg Pravastatin Sodium (Pravachol (Nf)) 10 mg PO 1700 [facility] Last Admin: 06/10/18 17:58 Dose: Not Given Vital Signs - 8 hr 06/11/18 06/11/18 06/11/18 07:20 08:00 12:01 Temperature 97.6 F 97.5 F Pulse Rate 66 63 Respiratory 16 16 16 Rate Blood Pressure 124/64 126/62 (mmHg) O2 Sat by Pulse 100 98 Oximetry 06/11/18 06/11/18 13:46 13:47 Temperature 97.9 F Pulse Rate 62 Respiratory 17 Rate Blood Pressure 125/61 (mmHg) O2 Sat by Pulse 99 Oximetry Oxygen Devices in Use Now: None Appearance: Patient is a 68yo male who appears stated age and is sitting in the bed in NAD. Eyes: No Scleral Icterus, PERRLA Ears/Nose/Mouth/Throat: NL Teeth, Lips, Gums, Clear Oropharnyx, Mucous Membranes Moist Neck: NL Appearance and Movements; NL JVP, Trachea Midline Respiratory: Symmetrical Chest Expansion and Respiratory Effort, Clear to Auscultation Cardiovascular: NL Sounds; No Murmurs; No JVD, RRR, No Edema Abdominal: - - Bloating, High pitched bowel sounds, tender to palpation in LLQ. Hypertympanic. Lymphatic: No Cervical Adenopathy Extremities: No Edema, No Clubbing, Cyanosis Skin: No Rash or Ulcers, No Nodules or Sclerosis Neurological: Alert and Oriented x 3, NL Sensation, NL Muscle Strength and Tone , - - CN II-XII intact. Result Diagrams: 06/11/18 06:55 06/11/18 06:55 Microbiology and Other Data: Microbiology 06/03/18 14:37 Stool Occult Blood (KEYUR) - Final Stool Assess/Plan/Problems-Billing Assessment: Mr. Barrett is a 68 yo M with PMH of HTN, HLD, and GERD who presented to ED with complaints of bloody stools, admitted for r/o GI bleeding now resolved and has developed a bowel obstruction which is resolving slowly. - Patient Problems (1) Bowel obstruction Current Visit: Yes Status: Acute Code(s): K56.609 - UNSP INTESTNL OBST, UNSP TO PARTIAL VERSUS COMPLETE OBST SNOMED Code(s): 06805508 Comment: - Flat plate of abdomen revealed SBO after resolution of GI bleed - CT yesterday showing persistent obstruction with transition point in the proximal descending colon, but no masses - Surgery following; recommends conservative management - GI following; Concern for adhesions vs internal hernia on colonoscopy, being managed conservatiely. - Sips of clears and IVF. - Continue Zofran (2) Acute blood loss anemia Current Visit: Yes Status: Acute Code(s): D62 - ACUTE POSTHEMORRHAGIC ANEMIA SNOMED Code(s): 721260271 Comment: - With report of bloody diarrhea, acute on chronic iron deficiency anemia - S/p EGD with polypectomy and colonoscopy this admission; no active bleeding - Incomplete prep on colonoscopy. - H&H stabilized - May need further workup outpatient for JEANETTE. - Give IV iron up to a gram while inpatient. - Ferrous sulfate d/c'd by GI (3) History of colon resection Current Visit: Yes Status: Acute Code(s): Z90.49 - ACQUIRED ABSENCE OF OTHER SPECIFIED PARTS OF DIGESTIVE TRACT SNOMED Code(s): 031152076 Comment: - PMHx of anticoagulation, anemia, GIB and possible inflammatory bowel disease ; had resection in 2016 (4) Lower GI bleeding Current Visit: Yes Status: Acute Code(s): K92.2 - GASTROINTESTINAL HEMORRHAGE, UNSPECIFIED SNOMED Code(s): 25316775 Comment: - Resolved - S/p EGD and colonoscopy, but no source of bleeding found (5) GERD (gastroesophageal reflux disease) Current Visit: No Status: Acute Code(s): K21.9 - GASTRO-ESOPHAGEAL REFLUX DISEASE WITHOUT ESOPHAGITIS SNOMED Code(s): 707755551 Comment: - With noted hiatal hernia on EGD - Change to PO Pantoprazole. (6) Hyperlipidemia Current Visit: No Status: Acute Code(s): E78.5 - HYPERLIPIDEMIA, UNSPECIFIED SNOMED Code(s): 49692398 Comment: - Continue pravastatin (7) Hypertension Current Visit: No Status: Acute Priority: Medium Code(s): I10 - ESSENTIAL (PRIMARY) HYPERTENSION SNOMED Code(s): 64708046 Comment: - Normotensive, SBP 120s - Continue atenolol, amlodipine (8) Full code status Current Visit: Yes Status: Acute Code(s): Z78.9 - OTHER SPECIFIED HEALTH STATUS SNOMED Code(s): 021171955 Comment: (9) DVT prophylaxis Current Visit: No Status: Acute Priority: Medium Code(s): HJG7348 - SNOMED Code(s): 703385390 Comment: - SCDs Status and Disposition: Inpatient. Anticipate d/c home when bowel obstruction resolves.
[2018-06-11] MEDS: CMCS:Pravastatin (NF) 20 MG TAB PO SCH (18:08)
[2018-06-12 06:35] LABS: ABS Basophils 0.1 10^3/ul (0-0.2); ABS Eosinophils 0.2 10^3/ul (0-0.6); ABS Lymphocytes 0.8 10^3/ul (1.0-4.8); ABS Neutrophils 6.5 10^3/ul (1.5-7.7); ABS Nucleated RBC 0 10^3/ul; Eosinophil % 2.5 %; Hematocrit 24 % (36-46); Hemoglobin 7.8 g/dL (14.0-18.0); Lymphocyte % 9.3 %; Mean Corpuscular HGB Conc 33 g/dL (31-36); Mean Corpuscular Hemoglobin 29 pg (27-31); Mean Corpuscular Volume 88 fL (80-94); Mean Platelet Volume 9.2 fL (7.4-10.4); Nucleated Red Blood Cells % 0; Platelet Count 348 10^3/uL (150-450); Red Blood Count 2.72 10^6 /uL (4.18-5.48); Red Cell Distribution Width 14 % (10.5-15); White Blood Count 8.6 10^3/uL (3.5-10.8)
[2018-06-12 06:58] LABS: BUN/Creatinine Ratio 16.2 (8-20); Calcium 8.1 mg/dL (8.6-10.3); EGFR African American 91.2 (>60); EGFR Non-African American 75.4 (>60); Magnesium 1.8 mg/dL (1.9-2.7); Potassium 3.6 mmol/L (3.5-5.0)
[2018-06-12] MEDS ORDERED: Magnesium Sulfate 2 GM IV* 2 GM/50 ML BAG IVPB ONE (07:10)
[2018-06-12] MEDS: Atenolol TAB* 50 MG PO SCH (07:40)
[2018-06-12] MEDS: amLODIPine TAB* 5 MG PO SCH (07:40)
[2018-06-12] MEDS: Pantoprazole IV* 40 MG IV SCH (07:40)
[2018-06-12] MEDS ORDERED: Iron Sucrose* 200 MG in NS 0.9% 100 ML* 100 ML IVPB ONE (08:00)
[2018-06-12] MEDS: NS 0.9% 1000 ML** 1,000 ML IV SCH (12:32)
--- NOTE | 2018-06-12 16:02 | PN ---
Progress Note - Progress Note Date of Service: 06/12/18 Note: pt seen and examined; +flatus, no bm, no abd pain, tolerating full liquids VS; 97.2, 136/69, 65, 18 nad alert +bs, softly distended, nt hgb 7.8 ileus/obstipation improving fluids, avoid narcs, advance diet will sign off, please call with ? Steve Corbett MD [facility] [phone]
[2018-06-12] MEDS ORDERED: Polyethylene Glycol 3350* 17 GM PACKET PO PRN (16:34)
[2018-06-12] MEDS ORDERED: Senna TAB PO ONE (16:34)
--- NOTE | 2018-06-12 16:38 | PN ---
Progress Note - Progress Note Date of Service: 06/12/18 Note: Surgery Progress Note S: Patient doing well. On full clear liquids and feels well. Passing gas, no BM. No nausea or emesis. O: Vital Signs: Temp Pulse Resp BP Pulse Ox 98.2 F 72 16 125/66 96 06/12/18 14:58 06/12/18 14:58 06/12/18 14:58 06/12/18 14:58 06/12/18 14:58 Intake & Output 06/12/18 06/12/18 06/12/18 06:59 14:59 22:59 Intake Total 800 Balance 800 Intake: Oral 800 Other: # Bowel Movements 0 # Voids 0 Abd: soft, mildly distended but improved, non tender, +tympany A/P: 68 M with LBO after colonoscopy for GIB. - Recommend advancing diet slowly as patient had recurrent systems after advancing diet earlier. Should remain on full liquids or soft. He still has some tympany although distension is much improved. It would be best if patient had BM before discharge. Could try a suppository.
[2018-06-12] MEDS: CMCS:Pravastatin (NF) 20 MG TAB PO SCH (17:09)
--- NOTE | 2018-06-12 17:10 | PN ---
Subjective Date of Service: 06/12/18 Interval History: Patient is feeling better today. Patient states his bloating is improving and he is passing lots of flatus. Patient denies CP, SOB, F/C, abdominal pain, dysuria, dizziness on standing, N/V. Patient tolerated clear liquids and then full liquids. Patient has not had a BM yet. Family History: Unchanged from Admission Social History: Unchanged from Admission Past Medical History: Unchanged from Admission Objective Active Medications: Amlodipine Besylate (Norvasc Tab*) 5 mg PO DAILY [facility] Last Admin: 06/12/18 07:40 Dose: 5 mg Atenolol (Tenormin Tab*) 50 mg PO DAILY [facility] Last Admin: 06/12/18 07:40 Dose: 50 mg Ondansetron HCl (Zofran Inj*) 4 mg IV Q4H PRN PRN Reason: NAUSEA/VOMITING Last Admin: 06/09/18 17:19 Dose: 4 mg Pantoprazole Sodium (Protonix Tab*) 40 mg PO BID [facility] Pravastatin Sodium (Pravachol (Nf)) 10 mg PO 1700 [facility] Last Admin: 06/11/18 18:08 Dose: 10 mg Vital Signs - 8 hr 06/12/18 06/12/18 11:15 14:58 Temperature 97.2 F 98.2 F Pulse Rate 65 72 Respiratory 18 16 Rate Blood Pressure 136/69 125/66 (mmHg) O2 Sat by Pulse 98 96 Oximetry Oxygen Devices in Use Now: None Appearance: Patient is a 68yo male who appears stated age and is sitting in the bed in [facility]. Eyes: No Scleral Icterus, PERRLA Ears/Nose/Mouth/Throat: NL Teeth, Lips, Gums, Clear Oropharnyx, Mucous Membranes Moist Neck: NL Appearance and Movements; NL JVP, Trachea Midline Respiratory: Symmetrical Chest Expansion and Respiratory Effort, Clear to Auscultation Cardiovascular: NL Sounds; No Murmurs; No JVD, RRR, No Edema Abdominal: No Hepatosplenomegaly, - - Mildly distended abdomen with typany and normoactive bowel sounds. Lymphatic: No Cervical Adenopathy Extremities: No Edema, No Clubbing, Cyanosis Skin: No Rash or Ulcers, No Nodules or Sclerosis Neurological: Alert and Oriented x 3, NL Sensation, NL Muscle Strength and Tone , - - CN II-XII intact. Result Diagrams: 06/12/18 06:25 06/12/18 06:25 Microbiology and Other Data: Microbiology 06/03/18 14:37 Stool Occult Blood (KEYUR) - Final Stool Assess/Plan/Problems-Billing Assessment: Mr. Barrett is a 68 yo M with PMH of HTN, HLD, and GERD who presented to ED with complaints of bloody stools, admitted for r/o GI bleeding now resolved and has developed a bowel obstruction which is resolving slowly. - Patient Problems (1) Bowel obstruction Current Visit: Yes Status: Acute Code(s): K56.609 - UNSP INTESTNL OBST, UNSP TO PARTIAL VERSUS COMPLETE OBST SNOMED Code(s): 09830087 Comment: - Flat plate of abdomen revealed SBO after resolution of GI bleed - CT showing persistent obstruction with transition point in the proximal descending colon, but no masses - Surgery following; recommends conservative management, diet advancing well. - GI following; Concern for adhesions vs internal hernia on colonoscopy, being managed conservatively. - Advanced to soft diet for dinner, watch overnight. - Continue Zofran (2) Acute blood loss anemia Current Visit: Yes Status: Acute Code(s): D62 - ACUTE POSTHEMORRHAGIC ANEMIA SNOMED Code(s): 524420327 Comment: - With report of bloody diarrhea, acute on chronic iron deficiency anemia - S/p EGD with polypectomy and colonoscopy this admission; no active bleeding - Incomplete prep on colonoscopy. - H&H stabilized - May need further workup outpatient for JEANETTE including repeat colonoscopy with complete prep and possible capsule endoscopy. - Give IV iron up to a gram while inpatient. - Ferrous sulfate d/c'd by GI (3) History of colon resection Current Visit: Yes Status: Acute Code(s): Z90.49 - ACQUIRED ABSENCE OF OTHER SPECIFIED PARTS OF DIGESTIVE TRACT SNOMED Code(s): 311465640 Comment: - PMHx of anticoagulation, anemia, GIB and possible inflammatory bowel disease ; had resection in 2016 - Repeat non-emergent colonoscopy. (4) Lower GI bleeding Current Visit: Yes Status: Acute Code(s): K92.2 - GASTROINTESTINAL HEMORRHAGE, UNSPECIFIED SNOMED Code(s): 61253978 Comment: - Resolved - S/p EGD and colonoscopy, but no source of bleeding found (5) GERD (gastroesophageal reflux disease) Current Visit: No Status: Acute Code(s): K21.9 - GASTRO-ESOPHAGEAL REFLUX DISEASE WITHOUT ESOPHAGITIS SNOMED Code(s): 610510379 Comment: - With noted hiatal hernia on EGD - Change to PO Pantoprazole. (6) Hyperlipidemia Current Visit: No Status: Acute Code(s): E78.5 - HYPERLIPIDEMIA, UNSPECIFIED SNOMED Code(s): 55448645 Comment: - Continue pravastatin (7) Hypertension Current Visit: No Status: Acute Priority: Medium Code(s): I10 - ESSENTIAL (PRIMARY) HYPERTENSION SNOMED Code(s): 08315561 Comment: - Normotensive, SBP 120s - Continue atenolol, amlodipine (8) Full code status Current Visit: Yes Status: Acute Code(s): Z78.9 - OTHER SPECIFIED HEALTH STATUS SNOMED Code(s): 063138846 Comment: (9) DVT prophylaxis Current Visit: No Status: Acute Priority: Medium Code(s): LIP9750 - SNOMED Code(s): 425290623 Comment: - SCDs Status and Disposition: Inpatient. Anticipate d/c home when bowel obstruction resolves. Hopefully tomorrow.
[2018-06-12] MEDS: Pantoprazole TAB * 40 MG TAB PO SCH (20:57)
[2018-06-13 06:22] LABS: ABS Basophils 0.1 10^3/ul (0-0.2); ABS Eosinophils 0.3 10^3/ul (0-0.6); ABS Monocytes 1.2 10^3/ul (0-0.8); ABS Neutrophils 5.8 10^3/ul (1.5-7.7); ABS Nucleated RBC 0 10^3/ul; Eosinophil % 3.5 %; Hematocrit 25 % (36-46); Hemoglobin 8.2 g/dL (14.0-18.0); Lymphocyte % 11.8 %; Mean Corpuscular HGB Conc 33 g/dL (31-36); Mean Corpuscular Hemoglobin 29 pg (27-31); Mean Corpuscular Volume 88 fL (80-94); Mean Platelet Volume 9.4 fL (7.4-10.4); Nucleated Red Blood Cells % 0; Platelet Count 372 10^3/uL (150-450); Red Blood Count 2.79 10^6 /uL (4.18-5.48); Red Cell Distribution Width 14 % (10.5-15); White Blood Count 8.3 10^3/uL (3.5-10.8)
[2018-06-13 06:43] LABS: Calcium 8.1 mg/dL (8.6-10.3); EGFR African American 90.2 (>60); EGFR Non-African American 74.5 (>60); Potassium 3.4 mmol/L (3.5-5.0)
[2018-06-13] MEDS ORDERED: Bisacodyl SUPP* 10 MG SUPP PR ONE (07:21)
[2018-06-13] MEDS: amLODIPine TAB* 5 MG PO SCH (07:45)
[2018-06-13] MEDS: Atenolol TAB* 50 MG PO SCH (07:45)
[2018-06-13] MEDS: Pantoprazole TAB * 40 MG TAB PO SCH (07:45)
[2018-06-13] MEDS ORDERED: Potassium Chlor TAB* 20 MEQ TAB.ER PO ONE (09:00)
--- NOTE | 2018-06-13 09:36 | PN ---
Progress Note - Progress Note Date of Service: 06/13/18 Note: Seen for SBO Afeb, feels well, no pain joel po's, no N/V No stool yet Abd soft, non-dist, non-tender resolving SBO consider dulcolax, or other bowel stim. Disch per medicine Please call if we can be of further assistance
--- NOTE | 2018-06-13 12:39 | PN ---
Subjective Date of Service: 06/13/18 Interval History: Pt and nurse report BM this morning, pt is tolerating diet and feels ready for DC to home. Denies abdominal pain or bloating. Passing gas. at bedside and agrees he is much better and would like to take him home. Family History: Unchanged from Admission Social History: Unchanged from Admission Past Medical History: Unchanged from Admission Objective Active Medications: Amlodipine Besylate (Norvasc Tab*) 5 mg PO DAILY [facility] Last Admin: 06/13/18 07:45 Dose: 5 mg Atenolol (Tenormin Tab*) 50 mg PO DAILY [facility] Last Admin: 06/13/18 07:45 Dose: 50 mg Ondansetron HCl (Zofran Inj*) 4 mg IV Q4H PRN PRN Reason: NAUSEA/VOMITING Last Admin: 06/09/18 17:19 Dose: 4 mg Pantoprazole Sodium (Protonix Tab*) 40 mg PO BID [facility] Last Admin: 06/13/18 07:45 Dose: 40 mg Pravastatin Sodium (Pravachol (Nf)) 10 mg PO 1700 [facility] Last Admin: 06/12/18 17:09 Dose: 10 mg Vital Signs - 8 hr 06/13/18 06/13/18 07:33 07:48 Temperature 97.3 F Pulse Rate 64 Respiratory 16 16 Rate Blood Pressure 130/72 (mmHg) O2 Sat by Pulse 96 Oximetry Oxygen Devices in Use Now: None Appearance: 68 yo male sitting up in bed iin NAD, A+O x3 Eyes: No Scleral Icterus, PERRLA Ears/Nose/Mouth/Throat: NL Teeth, Lips, Gums, Mucous Membranes Moist Neck: NL Appearance and Movements; NL JVP Respiratory: Symmetrical Chest Expansion and Respiratory Effort, Clear to Auscultation Cardiovascular: NL Sounds; No Murmurs; No JVD, RRR Abdominal: NL Sounds; No Tenderness; No Distention Lymphatic: No Cervical Adenopathy Extremities: No Edema, No Clubbing, Cyanosis Skin: No Rash or Ulcers, No Nodules or Sclerosis Neurological: Alert and Oriented x 3, NL Sensation, NL Gait, NL Muscle Strength and Tone Lines/Tubes/Other Access: Clean, Dry and Intact Peripheral IV Nutrition: Taking PO's Result Diagrams: 06/13/18 06:08 06/13/18 06:08 Microbiology and Other Data: Microbiology 06/03/18 14:37 Stool Occult Blood (KEYUR) - Final Stool Assess/Plan/Problems-Billing Assessment: Mr. Barrett is a 68 yo M with PMH of HTN, HLD, and GERD who presented to ED with complaints of bloody stools, admitted for r/o GI bleeding now resolved and has developed a bowel obstruction which is resolving slowly. - Patient Problems (1) Bowel obstruction Comment: - clinically improving. - Hx of SBO's, exploratory lap with lysis of adhesions in 2014 - Flat plate of abdomen revealed SBO after resolution of GI bleed - CT showing persistent obstruction with transition point in the proximal descending colon, but no masses - improving slowly, tolerating soft diet - Surgery following; recommends conservative management - GI following; Concern for adhesions vs internal hernia on colonoscopy, being managed conservatively. -BM this morning (2) Acute blood loss anemia Comment: - With report of bloody diarrhea, acute on chronic iron deficiency anemia - S/p EGD with polypectomy and colonoscopy this admission; no active bleeding - Incomplete prep on colonoscopy. - H&H stabilized - May need further workup outpatient for JEANETTE including repeat colonoscopy with complete prep and possible capsule endoscopy. - Ferrous sulfate d/c'd by GI (3) Lower GI bleeding Comment: - Resolved - S/p EGD and colonoscopy, but no source of bleeding found (4) GERD (gastroesophageal reflux disease) Comment: - With noted hiatal hernia on EGD - Change to PO Pantoprazole. (5) Hypertension Comment: - Normotensive, SBP 120s - Continue atenolol, amlodipine (6) Pulmonary embolism Comment: 2014 post-op PE and DVT - was on anticoagulation for 4 months (7) DVT prophylaxis Priority: Medium Comment: - SCDs (8) Full code status Comment: Status and Disposition: Inpatient. Stable for DC home today
[2018-06-13] MEDS ORDERED: Senna TAB PO ONE (12:43)
[2018-06-13 14:24] VITALS: BP 109/59
--- NOTE | 2018-06-13 21:48 | DS ---
CC: Dr. Christiano Santiago * DISCHARGE SUMMARY: DATE OF ADMISSION: 06/04/18 DATE OF DISCHARGE: 06/13/18 PROVIDER: Reena Lawler NP. ATTENDING PHYSICIAN: Dr. Sidhu * (report dictated by Reena Lawler NP). PRIMARY CARE PROVIDER: Dr. Christiano Santiago. CONSULTING SPRINKLER INSTALLER: Dr. Sadie Clark. DISCHARGE DIAGNOSES: 1. Gastrointestinal bleed. 2. Anemia. 3. Small bowel obstruction. 4. Acute kidney injury thought to be secondary to hypovolemia. SECONDARY DIAGNOSES: 1. History of small bowel obstruction with adhesions, status post lysis of adhesions. 2. Gastroesophageal reflux disease. 3. Hyperlipidemia. 4. Hypertension. DISCHARGE MEDICATIONS: 1. Pravastatin 10 mg p.o. daily. 2. Atenolol 50 mg p.o. daily. 3. Amlodipine 2.5 mg p.o. daily. New Medication: Protonix 40 mg p.o. daily x2 weeks. HISTORY OF PRESENT ILLNESS AND HOSPITAL COURSE: Please see history and physical by Shanda Costa NP, for full admission details, but in summary, this is a 68-year-old male with a past medical history of small bowel obstruction with adhesions, status post lysis of adhesions in 2014, who presented to the emergency department on 06/03/18 with a complaint of bloody diarrhea, found to be slightly anemic above his baseline, admitted to the hospitalist service for gastrointestinal bleed. On admission, his hemoglobin and hematocrit were 9.5 and 30. It is noted that back in 2015, they were 11 and 36. The patient was noted to have an elevated creatinine of 1.29 with a BUN of 31. This resolved with IV fluids. Mr. Barrett reported 2 episodes of bright red blood with melena since the morning of admission. The patient was seen in consultation by core placer, Dr. Sadie Guzman, who recommended the patient undergo an upper endoscopy as well as a colonoscopy. The patient underwent an upper endoscopy on the day of admission, which showed no evidence of fresh or old blood. Please see Dr. Sadie Guzman's full procedure note for further details. The patient was then prepped for colonoscopy and underwent a colonoscopy the next day with core placer , Dr. Deon Ennis. Colonoscopy to the ascending colon was limited by internal hernia and looping, as well as appeared to be poor prep and not significant for polyp detection. Pediatric and adult scope were ineffective at traversing beyond the internal hernia and looping. Again, there was no evidence of old or new blood. Duodenum and stomach biopsies showing no significant abnormal pathology. On 06/05/18, the patient's symptoms were improved and he was stable; the patient was going to be discharged. However, he became orthostatic, complaining of dizziness when standing as well as abdominal distention. He underwent an abdominal x-ray, which revealed a small bowel obstruction. The patient was seen in consultation by surgeon, Dr. Coby Sams, who recommended conservative treatment and thought that it is possible that some distention or adhesion of the bowel from the colonoscopy may have precipitated bowel obstruction. The patient remained n.p.o., with IV fluids. He never developed any nausea or vomiting. The patient's diet was slowly advanced. The patient initially did not tolerate his diet advance and had an increase in abdominal distention and bloating. Repeat abdomen flat plate did continue to show small bowel obstruction. He was then again made n.p.o. with bowel rest and over the next couple days this appears to have resolved at this time. His abdomen is now soft, only slightly distended, nontender, and he has been tolerating the advancement of diet over the past 2 days. He is stable for discharge to home. The patient has had no further bloody bowel movements. His anemia at the worst showed a hemoglobin and hematocrit of 7.7 and 23. Today, on discharge, it is 8.2 and 25. The patient is asymptomatic. GI did stop his oral ferrous sulfate. The patient was seen by surgeon, Dr. Munson, this morning, following up on the small bowel obstruction, who signed off on the case stating that the patient appears to be doing well and is stable for discharge to home. Recommendation is for the patient to follow up with GI as an outpatient. Due to his colon prep was not complete, he may benefit from an outpatient colonoscopy. However, he does appear to be at high risk for this due to his history of small bowel obstructions and adhesions. However, it was discussed with the patient's for him to follow up with GI as an outpatient to discuss this. DISCHARGE PLAN: 1. Follow up with primary care provider, Dr. Christiano Santiago, in 3 to 5 days. 2. Follow up with core placer, Dr. Sadie Clark or Dr. Deon Ennis, within 4 weeks. 3. Worsening signs and symptoms were discussed with the patient and when to return to the emergency department. 4. The patient is to continue with soft diet, advancing slowly. This was discussed at length with the patient and his , and given recommendations for food choices. TIME SPENT: Approximately 60 minutes were spent. REENA LAWLER, MARK [id number]/[facility] #: [id number] JANEL
== END 2018-06-13 14:45 | disposition home or self-care (01) | DRG 378 ==
LOC: ED 12:20 → MED 15:39 → OBSVTOIN 06-04 15:47 → MED 06-04 22:54
PROVIDERS: ADMIT Internal Medicine; ATTEND Internal Medicine
PROC: 0DD98ZX Extraction of Duodenum, Via Natural or Artificial Opening Endoscopic, Diagnostic (ICD-10-PCS; 2018-06-03)
PROC: 0DD68ZX Extraction of Stomach, Via Natural or Artificial Opening Endoscopic, Diagnostic (ICD-10-PCS; 2018-06-03)
PROC: 0DJD8ZZ Inspection of Lower Intestinal Tract, Via Natural or Artificial Opening Endoscopic (ICD-10-PCS; principal; 2018-06-04)
DX: K92.1 Melena (principal); D62 Acute posthemorrhagic anemia; K56.50 Intestinal adhesions [bands], unspecified as to partial versus complete obstruction; N17.9 Acute kidney failure, unspecified; K56.699 Other intestinal obstruction unspecified as to partial versus complete obstruction; K21.9 Gastro-esophageal reflux disease without esophagitis; E78.5 Hyperlipidemia, unspecified; E86.1 Hypovolemia; I10 Essential (primary) hypertension; K59.00 Constipation, unspecified; D50.0 Iron deficiency anemia secondary to blood loss (chronic); K45.8 Other specified abdominal hernia without obstruction or gangrene; K44.9 Diaphragmatic hernia without obstruction or gangrene; K31.7 Polyp of stomach and duodenum; Z90.49 Acquired absence of other specified parts of digestive tract; Z86.711 Personal history of pulmonary embolism; Z82.69 Family history of other diseases of the musculoskeletal system and connective tissue; Z79.899 Other long term (current) drug therapy
CPT/HCPCS: 36415; 74019; 74177; 80048; 80053; 82270; 83540; 83550; 83735; 85014; 85018; 85025; 85610; 85730; 86850; 86900; 86901; 88305; 90686; 93005; 99156; 99157; 99284; A9270-GY; G0378; J1756; J2250; J2405; J3010; J3475; J3480; Q9967

== ENCOUNTER 2019-01-12 14:47 | Emergency (ER) | payer MEDICARE ==
--- OUTSIDE RECORDS SUMMARY | 2019-01-12 14:55 | XMS REPORT | Continuity of Care Document ---
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 Active Problems Provider Date Essential hypertension Gianni Macedo MD Onset: 04/15/2000 Note: no complications as of 04/01/12; Gastroesophageal reflux disease Gianni Macedo MD Onset: 02/12/2012 Note: would take TUMS one roll a month for yrs Ulceration of intestine Gianni Macedo MD Onset: 10/14/2005 Note: he had acute GI bleeding events 2002 and 2005 with surgery eventually; 5 SOB collections in our office were always negative 2002- Melena Gianni Macedo MD Onset: 04/01/2012 Diaphragmatic hernia Gianni Macedo MD Onset: 04/27/2012 Digestive symptom SAHRA Rapp-Rodney Onset: 12/27/2013 Right lower quadrant pain DEAN Rapp Onset: 12/27/2013 Flatulence, eructation and gas pain DEAN Rapp Onset: 07/11/2014 Abdominal pain DEAN Rapp Onset: 07/28/2014 Umbilical hernia Gianni Macedo MD Onset: 07/20/2010 Note: at scar site Disorder of skin AND/OR subcutaneous tissue of Gianni Macedo MD Onset: flank Note: shaving abdominal hair revealed when he was examined; questioned pt and he avoided question so without explanation; Dr Santiago 01/20/15 indicated he had observed this but could offer no insight; Problem Onset: Social History Type Date Description Comments Sex Unknown Tobacco Use Start: Unknown Patient has never smoked Smoking Status Reviewed: 11/23/18 Patient has never smoked Allergies, Adverse Reactions, Alerts Description No Known Drug Allergies Medications Active Medications SIG Qnty Indications Ordering Provider Date Pravastatin Sodium take one tablet 90tabs Christiano Santiago MD 07/17/2013 10mg by mouth once Tablets daily Atenolol take one tablet 90tabs Christiano Santiago MD 01/26/2010 50mg Tablets by mouth once daily Pantoprazole Sodium 1 by mouth every 60tabs Christiano Santiago MD 40mg day Tablets DR Amlodipine Besylate 1 by mouth every Unknown 5mg day Tablets History Medications Iron 1 by mouth qd-bid 100tabs Christiano Santiago MD 08/23/2018 - 325(65Fe) mg 11/23/2018 Tablets Immunizations Description No Information Available Vital Signs Date Vital Result Comment 11/23/2018 2:10pm Height 73 inches 6'1" Weight 180.00 lb BP Systolic 141 mmHg BP Diastolic 84 mmHg Heart Rate 69 /min BMI (Body Mass Index) 23.7 kg/m2 07/14/2018 2:32pm Height 73 inches 6'1" Weight 171.00 lb BMI (Body Mass Index) 22.6 kg/m2 Results Test Date Facility Test Result H/L Range Note Comprehensive Metabolic 11/06/2018 N2N/CCD Import Sodium 137 mEq/L 134- 149 Prof Potassium 5.2 mEq/L 3.6-5.5 Chloride 102 mEq/L 94-112 Carbon Dioxide 25 mEq/L 21-32 Glucose 116 mg/dL High 70-105 BUN 22 mg/dL 6-26 Creatinine 1.2 mg/dL 0.6-1.4 BUN/Creat Ratio 18.3 CALC 8.0-36.0 Calcium 9.5 mg/dL 8.6-10.2 Total Protein 7.2 g/dL 6.4-8.3 Albumin 4.6 g/dL 3.8-5.5 Globulin 2.6 g/dL 2.0-4.8 A/G Ratio 1.8 CALC 0.6-2.3 Alk. Phosphatase 77 U/L 22-95 Alt (SGPT) 9 U/L 7-35 Ast (Sgot) 12 U/L 5-34 Total Bilirubin 0.4 mg/dL 0.2-1.3 GFR Non- >60 ml/min/1.73m^ GFR >60 ml/min/1.73m^ Lab Results 11/06/2018 N2N/[facility] Import Serum Iron 36 g/dL Low 60-150 PSA 3.5 ng/mL 0.0-4.0 WBC 8.8 10^3/uL 4.0-10.0 RBC 4.55 10^6/uL 3.93-6.00 HGB 11.9 g/dL Low 12.0-17.0 HCT 39 % 35-50 MCV 85.9 fL 80.0-95.0 MCH 26.2 pg 25.6-32.2 MCHC 30.4 g/dL Low 32.2-36.0 RDW-CV 16.3 % High 11.6-14.4 PLT 299 10^3/uL 163-400 MPV 12.0 fL 9.4-12.4 Sandra# 6.30 10^3/uL High 1.56-6.13 Lymph# 1.54 10^3/uL 1.18-3.74 Nelson# 0.75 10^3/uL 0.24-0.82 Eos # 0.1 10^3/uL 0.0-0.5 Baso # 0.06 10^3/uL 0.01-0.08 Sandra% 71.6 % High 34.0-70.0 Lymph % 17.5 % Low 20.0-52.0 Nelson% 8.5 % 5.0-12.0 Eos% 1.6 % 0.7-7.0 Baso% 0.7 % 0.1-1.2 Lab Results 11/06/2018 [facility] Import WBC 8.8 10^3/uL 4.0-10.0 RBC 4.55 10^6/uL 3.93-6.00 HGB 11.9 g/dL Low 12.0-17.0 HCT 39 % 35-50 MCV 85.9 fL 80.0-95.0 MCH 26.2 pg 25.6-32.2 MCHC 30.4 g/dL Low 32.2-36.0 RDW-CV 16.3 % High 11.6-14.4 PLT 299 10^3/uL 163-400 MPV 12.0 fL 9.4-12.4 Sandra# 6.30 10^3/uL High 1.56-6.13 Lymph# 1.54 10^3/uL 1.18-3.74 Nelson# 0.75 10^3/uL 0.24-0.82 Eos # 0.1 10^3/uL 0.0-0.5 Baso # 0.06 10^3/uL 0.01-0.08 Sandra% 71.6 % High 34.0-70.0 Lymph % 17.5 % Low 20.0-52.0 Nelson% 8.5 % 5.0-12.0 Eos% 1.6 % 0.7-7.0 Baso% 0.7 % 0.1-1.2 Lab Results 09/25/2018 N2N/CCD Import Serum Iron 61 g/dL 60-150 WBC 7.3 10^3/uL 4-10 RBC 3.95 10^6/uL 3.93-6 HGB 10.2 g/dL Low 12-17 HCT 33 % Low 35-50 MCV 83.5 fL 80-95 MCH 25.8 pg 25.6-32.2 MCHC 30.9 g/dL Low 32.2-36 RDW-CV 14.5 % High 11.6-14.4 PLT 315 10^3/uL 163-400 MPV 12.6 fL High 9.4-12.4 Sandra# 4.82 10^3/uL 1.56-6.13 Lymph# 1.54 10^3/uL 1.18-3.74 Nelson# 0.69 10^3/uL 0.24-0.82 Eos # 0.2 10^3/uL 0-0.5 Baso # 0.07 10^3/uL 0.01-0.08 Sandra% 66.0 % 34-70 Lymph % 21.1 % 20-52 Nelson% 9.5 % 5-12 Eos% 2.3 % 0.7-7 Baso% 1.0 % 0.1-1.2 Lab Results 09/25/2018 N2N/CCD Import WBC 7.3 10^3/uL 4-10 RBC 3.95 10^6/uL 3.93-6 HGB 10.2 g/dL Low 12-17 HCT 33 % Low 35-50 MCV 83.5 fL 80-95 MCH 25.8 pg 25.6-32.2 MCHC 30.9 g/dL Low 32.2-36 RDW-CV 14.5 % High 11.6-14.4 PLT 315 10^3/uL 163-400 MPV 12.6 fL High 9.4-12.4 Sandra# 4.82 10^3/uL 1.56-6.13 Lymph# 1.54 10^3/uL 1.18-3.74 Nelson# 0.69 10^3/uL 0.24-0.82 Eos # 0.2 10^3/uL 0-0.5 Baso # 0.07 10^3/uL 0.01-0.08 Sandra% 66.0 % 34-70 Lymph % 21.1 % 20-52 Nelson% 9.5 % 5-12 Eos% 2.3 % 0.7-7 Baso% 1.0 % 0.1-1.2 Lab Results 08/14/2018 N2N/CCD Import Ict Hemoccult (1) 08/02/18 Neg. Ict Hemoccult-(2) 08/03/18 Neg. Ict-Hemoccult (3) 08/04/18 Neg. Comprehensive Metabolic Prof 08/13/2018 N2N/CCD Import Sodium 147 mEq/L 134-149 Potassium 5.1 mEq/L 3.6-5.5 Chloride 104 mEq/L 94-112 Carbon Dioxide 26 mEq/L 21-32 Glucose 83 mg/dL 70-105 BUN 21 mg/dL 6-26 Creatinine 1.4 mg/dL 0.6-1.4 BUN/Creat Ratio 15.0 CALC 8-36 Calcium 9.6 mg/dL 8.6-10.2 Total Protein 6.7 g/dL 6.4-8.3 Albumin 4.4 g/dL 3.8-5.5 Globulin 2.3 g/dL 2-4.8 A/G Ratio 1.9 CALC 0.6-2.3 Alk. Phosphatase 66 U/L 22-95 Alt (SGPT) 9 U/L 7-35 Ast (Sgot) 15 U/L 5-34 Total Bilirubin 0.3 mg/dL 0.2-1.3 GFR Non- 54 ml/min/1.73m^ Low GFR >60 ml/min/1.73m^ Lab Results 08/13/2018 N2N/CCD Import Free T4 1.14 ng/dL 0.75-1.54 TSH 1.43 mIU/L 0.5-6 Serum Iron 20 g/dL Low 60-150 1 Lipid Profile 08/13/2018 N2N/CCD Import Cholesterol 152 mg/dL 120-200 Triglycerides 107 mg/dL 30-200 HDL Cholesterol 57 mg/dL 30-70 LDL (Calculated) 74 CALC 0-129 VLDL Cholesterol 21 mg/dL 0-50 HDL Risk Factor 2.7 CALC 0-4.4 Lab Results 08/13/2018 N2N/CCD Import CK 132 U/L 38-174 WBC 7.45 1 4-10 RBC 3.73 1 Low 3.93-6 Hemoglobin (Fma/CMC/CTX) 10.0 g/dL Low 12-17 Hematocrit (Fma/CMC/CTX) 32.3 % Low 35-50 Mean Corpuscular Vol 86.6 fL 80-95 Mean Corpuscular Hemoglobin 26.8 pg 25.6-32.2 Mean Corpuscular Hemo Concen 31.0 g/dL Low 32.2-36 Platelets 284 10^3/uL 163-400 RDW-CV 13.9 1 11.6-14.4 Mean Platelet Volume 12.3 fL 8-12.4 Absolute Neutrophils BLD 5.12 1 1.56-6.13 Absolute Lymphocytes 1.35 1 1.18-3.74 Absolute Monocytes BLD Auto 0.78 1 0.24-0.82 Absolute Eos Blood 0.13 1 0.04-0.54 Absolute Basophils 0.06 1 0.01-0.08 Neutrophil % 68.8 % 34-70 Lymph% 18.1 % Low 20-52 Monocytes % 10.5 % 5-12 Eos % 1.7 % 0.7-7 Basophil% 0.8 % 0-1.2 Lab Results 08/13/2018 N2N/CCD Import WBC 7.45 1 4-10 RBC 3.73 1 Low 3.93-6 Hemoglobin (Fma/CMC/CTX) 10.0 g/dL Low 12-17 Hematocrit (Fma/CMC/CTX) 32.3 % Low 35-50 Mean Corpuscular Vol 86.6 fL 80-95 Mean Corpuscular Hemoglobin 26.8 pg 25.6-32.2 Mean Corpuscular Hemo Concen 31.0 g/dL Low 32.2-36 Platelets 284 10^3/uL 163-400 RDW-CV 13.9 1 11.6-14.4 Mean Platelet Volume 12.3 fL 8-12.4 Absolute Neutrophils BLD 5.12 1 1.56-6.13 Absolute Lymphocytes 1.35 1 1.18-3.74 Absolute Monocytes BLD Auto 0.78 1 0.24-0.82 Absolute Eos Blood 0.13 1 0.04-0.54 Absolute Basophils 0.06 1 0.01-0.08 Neutrophil % 68.8 % 34-70 Lymph% 18.1 % Low 20-52 Monocytes % 10.5 % 5-12 Eos % 1.7 % 0.7-7 Basophil% 0.8 % 0-1.2 Xray 06/26/2018 [facility] [place] [facility] Barium Enema W/ <pending> Air Contrast Lab Results 06/18/2018 N2N/CCD Import Hematocrit 28.2 % Low 35-50 (Fma/CMC/CTX) CBC W/Auto 06/15/2018 [facility] White Blood Count <pending> Differential(!) Ser Auto CNT RBC Red Blood Count <pending> Hemoglobin Blood <pending> Hematocrit <pending> MCV (Corpuscular Volume) <pending> MCH (Corpuscular Hemoglobin) <pending> MCHC (Corpuscular Hemog Conc) <pending> RDW <pending> Platelet Count Blood Auto CNT <pending> MPV <pending> Lymph% <pending> Nelson% <pending> Neutrophil % <pending> Absolute Lymphocytes <pending> Absolute Monocytes <pending> Absolute Neutrophils <pending> CBC W/Auto 06/13/2018 [facility] White Blood <pending> Differential(!) Count Ser Auto CNT RBC Red Blood Count <pending> Hemoglobin Blood <pending> Hematocrit <pending> MCV (Corpuscular Volume) <pending> MCH (Corpuscular Hemoglobin) <pending> MCHC (Corpuscular Hemog Conc) <pending> RDW <pending> Platelet Count Blood Auto CNT <pending> MPV <pending> Lymph% <pending> Nelson% <pending> Neutrophil % <pending> Absolute Lymphocytes <pending> Absolute Monocytes <pending> Absolute Neutrophils <pending> BMP W/O Egfr(!) 06/13/2018 [facility] Sodium(!) <pending> Potassium(!) <pending> Chloride Serum/Plasma(!) <pending> Carbon Dioxide Ser/Plasm(!) <pending> BUN - Urea Nitrogen(!) <pending> Calcium Ser/Plasma Mass/Vol(!) <pending> Creatinine Serum Mass/Vol(!) <pending> Glucose Serum(!) <pending> BMP W/O Egfr(!) 06/12/2018 [facility] Sodium(!) <pending> Potassium(!) <pending> Chloride Serum/Plasma(!) <pending> Carbon Dioxide Ser/Plasm(!) <pending> BUN - Urea Nitrogen(!) <pending> Calcium Ser/Plasma Mass/Vol(!) <pending> Creatinine Serum Mass/Vol(!) <pending> Glucose Serum(!) <pending> CBC W/Auto 06/12/2018 [facility] White Blood <pending> Differential(!) Count Ser Auto CNT RBC Red Blood Count <pending> Hemoglobin Blood <pending> Hematocrit <pending> MCV (Corpuscular Volume) <pending> MCH (Corpuscular Hemoglobin) <pending> MCHC (Corpuscular Hemog Conc) <pending> RDW <pending> Platelet Count Blood Auto CNT <pending> MPV <pending> Lymph% <pending> Nelson% <pending> Neutrophil % <pending> Absolute Lymphocytes <pending> Absolute Monocytes <pending> Absolute Neutrophils <pending> Laboratory test 06/03/2018 [facility] [place] SEE RESULT 2 finding Interface Order BELOW Laboratory test 06/03/2018 [facility] Occult Blood #1 <pending> finding Screen Stool Occult 06/03/2018 N2N/CCD Import Stool Occult See Result 3 Blood, Screen Blood, Screen Below CBC Auto Diff 06/03/2018 N2N/CCD Import White Blood 13.6 10^3/uL High 3.5 -10. Count 8 Red Blood Count 3.33 10^6/uL Low 4-5.4 Hemoglobin 9.5 g/dL Low 14-18 Hematocrit 30 % Low 42-52 Mean Corpuscular Volume 89 fL 80-94 Mean Corpuscular Hemoglobin 29 pg 27-31 Mean Corpuscular HGB Conc 32 g/dL 31-36 Red Cell Distribution Width 13 % 10.5-15 Platelet Count 289 10^3/uL 150-450 Mean Platelet Volume 10.8 fL High 7.4-10.4 Abs Neutrophils 10.7 10^3/uL High 1.5-7.7 Abs Lymphocytes 1.9 10^3/uL 1-4.8 Abs Monocytes 0.9 10^3/uL High 0-0.8 Abs Eosinophils 0 10^3/uL 0-0.6 Abs Basophils 0.1 10^3/uL 0-0.2 Abs Nucleated RBC 0 10^3/uL Granulocyte % 78.5 % Lymphocyte % 13.9 % Monocyte % 6.5 % Eosinophil % 0.3 % Basophil % 0.8 % Nucleated Red Blood Cells % 0 1 Comp Metabolic Panel 06/03/2018 N2N/CCD Import Sodium 136 mmol/L 135- 145 Potassium 4.1 mmol/L 3.5-5 Chloride 106 mmol/L 101-111 Co2 Carbon Dioxide 26 mmol/L 22-32 Anion Gap 4 mmol/L 2-11 Glucose 117 mg/dL High 70-100 Blood Urea Nitrogen 31 mg/dL High 6-24 Creatinine 1.29 mg/dL High 0.67-1.17 BUN/Creatinine Ratio 24.0 1 High 8-20 Calcium 8.8 mg/dL 8.6-10.3 Total Protein 6.3 g/dL Low 6.4-8.9 Albumin 4.1 g/dL 3.2-5.2 Globulin 2.2 g/dL 2-4 Albumin/Globulin Ratio 1.9 1 1-3 Total Bilirubin 0.30 mg/dL 0.2-1 Alkaline Phosphatase 56 U/L 34-104 Alt 11 U/L 7-52 Ast 15 U/L 13-39 Egfr Non- 55.6 1 Egfr 67.2 1 4 Inr/Protime 06/03/2018 N2N/CCD Import Inr 0.90 1 0.77-1.02 Lab Results 06/03/2018 N2N/CCD Import Partial Thrombo 29.6 s 26-36.3 Time PTT Type & Screen 06/03/2018 N2N/CCD Import Patient Blood Type A Positive Antibody Screen Negative 1 RESULTS VERIFIED BY REPEAT ANALYSIS 2 SEE RESULT BELOW Name: JESE SUGGS JR : [address]: Juanita Beckford MD Acct: [id number] Unit: [id number] AGE: 68 Location: [facility] 411- Re06/03/18 SEX: M Status: ADM Lv SPEC: [id number] IKE: 06/03/[address] [facility] [address]: Sadie Guzman MD REQ: [id number] RECD: 06/03/18 STATUS: SARITA LNYN DR: Albert Lynn MD _ ORDERED: LEVEL 4/2 FINAL DIAGNOSIS 1. Stomach, biopsy: -- Fundic polyp. 2. Duodenum, biopsy: -- Polypoid duodenal mucosa with no significant pathologic abnormality. CLINICAL HISTORY Melena; hematochezia POST-OPERATIVE DIAGNOSIS EGD: normal esophagus; Schatzki ring; gastroesophageal junction at 41 cm; hiatal hernia at 45 cm; gastric polyps - biopsy; duodenum - nodular erythema; bulb - biopsy; no blood GROSS DESCRIPTION 1. The specimen is received in formalin labeled, Gastric Polyp Biopsy, and consists of two cristina-pink irregular to polypoid soft tissue fragments measuring 0.2 x 0.2 x 0.1 cm and 0.3 0.3 x 0.2 cm which are submitted entirely in one cassette. 2. The specimen is received in formalin labeled, Duodenal Nodule Biopsy, and consists of a 0.3 x 0.2 x 0.1 cm cristina-pink irregular soft tissue fragment which is submitted entirely in one cassette. Signed by and Reported on: Marcello Sun MD 10/16 1023 END OF REPORT DEPARTMENT OF PATHOLOGY, [address] [place] [address] Marcello Sun M.D. Director [facility] # [id number] 3 SEE RESULT BELOW Name: JESE SUGGS JR : [address]: Rico Shen MD Acct: [id number] Unit: [id number] AGE: 68 Location: ED Re06/03/18 SEX: M Status: REG ER SPEC: [id number] IKE: 06/03/[address] [facility] [address]: Rico Shen MD REQ: [id number] RECD: 06/03/18 STATUS: COMP [facility] DR: Christiano Santiago MD _ SOURCE: STOOL SPDESC: ORDERED: Occult Bl, Scn Procedure Result Reported Site Stool Occult Blood (1) Final 06/03/18- 1450 ML Stool Occult Blood Positive * ML - Main Lab . END OF REPORT DEPARTMENT OF PATHOLOGY, [address] [place] [address] Marcello Sun M.D. Director [facility] # [id number] 4 Because ethnic data is not always readily available, this report includes an eGFR for both -Americans and non- Americans. The National Kidney Disease Education Program (NKDEP) does not endorse the use of the MDRD equation for patients that are not between the ages of 18 and 70, are , have extremes of body size, muscle mass, or nutritional status, or are non- or non-. According to the National Kidney Foundation, irrespective of diagnosis, the stage of the disease is based on the level of kidney function: Stage Description GFR(mL/min/1.73 m(2)) 1 Kidney damage with normal or decreased GFR 90 2 Kidney damage with mild decrease in GFR 60-89 3 Moderate decrease in GFR 30-59 4 Severe decrease in GFR 15-29 5 Kidney failure <15 (or dialysis) Procedures Date Code Description Status 06/04/2018 99782 Colonoscopy Completed 06/03/2018 93390 EGD+Biopsy Single Or Multiple Completed Medical Devices Description No Information Available Encounters Type Date Location Provider Dx Diagnosis Office Visit 07/14/2018 Gastroenterology Deon Ennis, D50.9 Iron deficiency 2:15p [facility] DO anemia, unspecified D50.0 Iron deficiency anemia secondary to blood loss (chronic) K56.50 Intestnl adhesions, unsp as to partial versus complete obst Assessments Date Code Description Provider 11/23/2018 D50.0 Iron deficiency anemia secondary to blood Deon Loli, DO loss (chronic) 11/23/2018 K56.50 Intestinal adhesions [bands], unspecified Deon Loli, DO as to partial versus complete obstruction 07/14/2018 D50.9 Iron deficiency anemia, unspecified Deon Loli, DO 07/14/2018 D50.0 Iron deficiency anemia secondary to blood Deon Loli, DO loss (chronic) 07/14/2018 K56.50 Intestinal adhesions [bands], unspecified Deon Loli, DO as to partial versus complete obstruction 06/12/2018 K56.7 Ileus, unspecified Steve Schmidt MD 06/11/2018 K56.7 Ileus, unspecified Steve Schmidt MD 06/10/2018 K92.2 Gastrointestinal hemorrhage, unspecified Sadie Guzman MD 06/04/2018 K92.1 Melena Deon Ennis DO 06/03/2018 K62.5 Hemorrhage of anus and rectum Sadie Clark MD 06/03/2018 K22.2 Esophageal obstruction Sadie Clark MD 06/03/2018 K31.7 Polyp of stomach and duodenum Sadie Clark MD 06/03/2018 K44.9 Diaphragmatic hernia without obstruction or Sadie Guzman MD gangrene Plan of Treatment Future Appointment(s):01/22/2019 2:45 pm - Deon Ennis DO at [facility]11/23/2018 - OTILIA 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
--- NOTE | 2019-01-12 16:48 | UC ---
Abdominal Pain Male HPI - HPI Summary HPI Summary: The patient is a 68-year-old male with the onset of abdominal pain 3 days ago. The pain is bandlike across his mid abdomen. He has had a small bowel obstruction in the past that required lysis of adhesions. This was a number of years ago. In May of this year he was admitted to the hospital with a partial small bowel obstruction as well as some GI bleeding. The cause of his bleeding was not identified despite endoscopy. He states that his abdomen feels bloated. At the onset of symptoms he had some nausea and vomiting. On day #2 of his symptoms he had diarrhea. Yesterday he felt markedly improved and was able to eat. Today he had scrambled eggs for breakfast and his abdominal pain recurred. He has had a loose stool today. He denies any UTI symptoms. - History of Current Complaint Chief Complaint: UCAbdominalPain Stated Complaint: STOMACH PROBLEM Time Seen by Provider: 01/12/19 16:36 Hx Obtained From: Patient Onset/Duration: Gradual Onset, Lasting Days Timing: Constant Severity Initially: Mild Severity Currently: Mild Pain Intensity: 3 Pain Scale Used: 0-10 Numeric Location: Diffuse Radiates: No Character: Colicy, Cramping Aggravating Factor(s): Nothing Alleviating Factor(s): Spontaneous Resolution Associated Signs And Symptoms: Positive: Decreased Appetite, Nausea, Vomiting, Diarrhea. Negative: Diaphoresis, Fever, Cough, Chest Pain, Dizzy, Back Pain, Constipation, Blood in Stool, Urinary Symptoms, Penile Discharge - Allergies/Home Medications Allergies/Adverse Reactions: Allergies Allergy/AdvReac Type Severity Reaction Status Date / Time No Known Allergies Allergy Verified 01/12/19 15:21 PMH/Surg Hx/FS Hx/Imm Hx Previously Healthy: Yes Cardiovascular History: Hypertension - Surgical History Surgical History: Yes Surgery Procedure, Year, and Place: SMALL BOWEL RESECTION; abd herni - Family History Known Family History: Positive: Unknown, Other - Multiple sclerosis- maternal Negative: Cardiac Disease, Diabetes - Social History Alcohol Use: None Substance Use Type: None Smoking Status (MU): Never Smoked Tobacco Type: Cigarettes Have You Smoked in the Last Year: No - Immunization History Most Recent Influenza Vaccination: 06/05/18 Most Recent Tetanus Shot: 2010 Most Recent Pneumonia Vaccination: Date unknown but pt states has received Review of Systems All Other Systems Reviewed And Are Negative: Yes Constitutional: Positive: Negative Skin: Positive: Negative Eyes: Positive: Negative ENT: Positive: Negative Respiratory: Positive: Negative Cardiovascular: Positive: Negative Gastrointestinal: Positive: Abdominal Pain, Vomiting, Diarrhea, Nausea Genitourinary: Positive: Negative Motor: Positive: Negative Neurovascular: Positive: Negative Musculoskeletal: Positive: Negative Neurological: Positive: Negative Psychological: Positive: Negative Physical Exam Triage Information Reviewed: Yes Appearance: Well-Appearing, No Pain Distress, Well-Nourished Vital Signs: Initial Vital Signs Temp 99 F 01/12/19 15:14 Pulse 73 01/12/19 15:14 Resp 18 01/12/19 15:14 BP 135/86 01/12/19 15:14 Pulse Ox 99 01/12/19 15:14 Vital Signs Reviewed: Yes Eyes: Positive: Conjunctiva Clear ENT: Positive: Hearing grossly normal. Negative: Nasal congestion, Nasal drainage, Trismus, Muffled voice, Hoarse voice Dental Exam: Normal Neck: Positive: Supple, Nontender Respiratory: Positive: Lungs clear, Normal breath sounds, No respiratory distress, No accessory muscle use Cardiovascular: Positive: RRR Abdomen Description: Positive: Distended, Other: - LLQ tenderness. Negative: Nontender, No Organomegaly, CVA Tenderness (R), CVA Tenderness (L) Bowel Sounds: Positive: Hyperactive Musculoskeletal: Positive: ROM Intact, No Edema Neurological: Positive: Alert Psychological Exam: Normal Skin Exam: Normal Diagnostics - Radiology No standard instances Radiology Interpretation Completed By: Radiologist Summary of Radiographic Findings: SBO Abd Pain Male Course/Dx - Course Course Of Treatment: I told patient his XR showed a SBO and that he needed to go to the ER for further evaluation He declines EMS transfer His can drive - Differential Dx/Clinical Impression Provider Diagnosis: Small bowel obstruction, Abdominal pain Discharge ED - Sign-Out/Discharge Documenting (check all that apply): Patient Departure All imaging exams completed and their final reports reviewed: Yes - Discharge Plan Condition: Fair Disposition: HOME-RECOMMEND TO ED Additional Instructions: please go directly to the EMERGENCY ROOM Your XRs showed a SMALL BOWEL OBSTRUCTION Don't ear or drink en route - Billing Disposition and Condition Condition: FAIR Disposition: Home-Recommend to ED
[2019-01-12 17:24] VITALS: BP 139/80
== END 2019-01-12 17:20 | disposition home health service (06) ==
LOC: UCEAST 14:47
DX: K56.609 Unspecified intestinal obstruction, unspecified as to partial versus complete obstruction (principal); R10.9 Unspecified abdominal pain; I10 Essential (primary) hypertension
CPT/HCPCS: 74019; 99212; G0463

== ENCOUNTER 2019-01-12 17:56 | Emergency (ER) | payer MEDICARE ==
--- NOTE | 2019-01-12 20:38 | ED ---
Abdominal Pain/Male - HPI Summary HPI Summary: Pt is a 68 y/o M presenting to the ED for a chief complaint of abdominal pain for the last 3 days. On the night of 01/09/19, pt began to feel an aching sensation in the abdomen that continued on 01/10/19. Pt did not eat until and ate again on 01/12/19 after which he did not feel the abdominal pain. Pt ate a meal of eggs and drank coffee. Pt states the abdominal pain began again on 01/12/19, but is currently resolved. Pt had diarrhea twice on 01/12/19 and chills on 01/10/19. Pt denies nausea, vomiting, fever, CP, SOB, or changes in diet. Pt was previously seen at [facility] where an abdominal x-ray showed a bowel obstruction. Pt has a PMHx of small bowel obstruction and a PSHx of a small bowel resection performed at [facility] after a spot was found on his small intestine. Pt denies a PSHx of appendectomy or cholecystectomy. - History of Current Complaint Chief Complaint: EDAbdPain Stated Complaint: SBO PER PT Time Seen by Provider: 01/12/19 20:06 Hx Obtained From: Patient Onset/Duration: Sudden Onset, Lasting Days - 3 day Timing: Lasting Days - 3 days Severity Initially: Moderate Severity Currently: Moderate Pain Intensity: 4 Pain Scale Used: 0-10 Numeric Location: Diffuse Radiates: No Character: Other: - Aching Aggravating Factor(s): Nothing Alleviating Factor(s): Nothing Associated Signs And Symptoms: Positive: Diarrhea. Negative: Fever, Nausea, Vomiting - Allergies/Home Medications Allergies/Adverse Reactions: Allergies Allergy/AdvReac Type Severity Reaction Status Date / Time No Known Allergies Allergy Verified 01/12/19 20:27 PMH/Surg Hx/FS Hx/Imm Hx Previously Healthy: Yes Endocrine/Hematology History: Denies: Hx Diabetes, Hx Thyroid Disease Cardiovascular History: Reports: Hx Hypertension Denies: Hx Congestive Heart Failure Respiratory History: Denies: Hx Asthma, Hx Chronic Obstructive Pulmonary Disease (COPD) GI History: Reports: Hx Gastroesophageal Reflux Disease, Other GI Disorders - small bowel resection 2015, / SBO 05/2018 Denies: Hx Ulcer History: Denies: Hx Renal Disease Musculoskeletal History: Reports: Hx Orthopedic Injury - L Wrist fx Sensory History: Reports: Hx Contacts or Glasses Denies: Hx Hearing Aid Opthamlomology History: Reports: Hx Contacts or Glasses - Surgical History Surgery Procedure, Year, and Place: SMALL BOWEL RESECTION; abd herni Infectious Disease History: No Infectious Disease History: Denies: Hx Clostridium Difficile, Hx Hepatitis, Hx Human Immunodeficiency Virus (HIV), Hx of Known/Suspected MRSA, Hx Shingles, Hx Tuberculosis, Hx Known/ Suspected VRE, Hx Known/Suspected VRSA, History Other Infectious Disease, Traveled Outside the [place] in Last 30 Days - Family History Known Family History: Positive: Unknown, Other - Multiple sclerosis- maternal Negative: Cardiac Disease, Diabetes - Social History Alcohol Use: None Substance Use Type: Reports: None Smoking Status (MU): Never Smoked Tobacco Type: Cigarettes Have You Smoked in the Last Year: No Review of Systems Negative: Chest Pain Negative: Shortness Of Breath Positive: Abdominal Pain, Diarrhea. Negative: Vomiting, Nausea All Other Systems Reviewed And Are Negative: Yes Physical Exam - Summary Physical Exam Summary: Appearance: Well-appearing, Well-nourished, lying in bed comfortably Skin: Warm, dry, no obvious rash Eyes: sclera anicteric, no conjunctival pallor ENT: mucous membranes moist, pharynx appears normal Neck: Supple, nontender Respiratory: Clear to auscultation, no signs of respiratory distress Cardiovascular: Normal S1, S2. No murmurs. Normal distal pulses in tibial and radial bilaterally. Abdomen: Soft, nontender, normal active bowel sounds present Musculoskeletal: Normal, Strength/ROM Intact Neurological: A&Ox3, awake and alert, mentation is normal, speech is fluent and appropriate Psychiatric: affect is normal, does not appear anxious or depressed Triage Information Reviewed: Yes Vital Signs On Initial Exam: Initial Vitals Temp Pulse Resp BP Pulse Ox 99 F 77 17 132/79 97 01/12/19 18:25 01/12/19 18:25 01/12/19 18:25 01/12/19 18:25 01/12/19 18:25 Vital Signs Reviewed: Yes Procedures - Sedation Patient Received Moderate/Deep Sedation with Procedure: No Diagnostics - Vital Signs Vital Signs Temp Pulse Resp BP Pulse Ox 01/12/19 20:12 66 140/74 97 01/12/19 20:00 66 98 01/12/19 19:42 68 162/90 98 01/12/19 18:25 99 F 77 17 132/79 97 - Laboratory Result Diagrams: 01/12/19 21:20 01/12/19 21:20 Lab Statement: Any lab studies that have been ordered have been reviewed, and results considered in the medical decision making process. Re-Evaluation - Re-Evaluation 1st re-eval Re-Evaluation Time: 20:43 Change: Unchanged Comment: At 20:43, I updated the pt on Dr. Gee recommendations. Abdominal Pain Male Course/Dx - Course Course Of Treatment: Pt is a 68 y/o M presenting to the ED for a chief complaint of abdominal pain for the last 3 days. On the night of 01/09/19, pt began to feel an aching sensation in the abdomen that continued in 01/10/19. Pt did not eat until 01/11/19 and ate again on 01/12/19 after which he did not feel the abdominal pain. Pt ate a meal of eggs and drank coffee. Pt states the abdominal pain is currently resolved. Pt had diarrhea twice on 01/12/19 and chills on 01/10/19. Pt denies nausea, vomiting, fever, CP, SOB, or changes in diet. Pt was previously seen at [facility] where an abdominal x-ray showed a bowel obstruction. Pt has a PMHx of small bowel obstruction and a PSHx of a small bowel resection performed at [facility] after a spot was found on his small intestine. Pt denies a PSHx of appendectomy or cholecystectomy. On exam, pt has unremarkable findings. In the ED course, pt was given diphenhydramine 50 mg PO and fluids. Laboratory abnormal findings: Hgb 12.0, Hct 37, RDW 16, MPV 10.8, absolute monos 1.4, BUN 41, creatinine 1.62, and BUN/Creatinine 25.3. At 20:39, I spoke with Dr. Sams who says further workup at the discretion of the pt and myself. Dr. Sams is happy to consult again if pt needs to be admitted to the hospital. At 20:43, I updated the pt on Dr. Gee recommendations. Pt will be discharged home with a diagnosis of intermittent small bowel obstruction and dehydration. Follow up with PCP. - Diagnoses Provider Diagnoses: Dehydration, Intermittent small bowel obstruction Discharge ED - Sign-Out/Discharge Documenting (check all that apply): Patient Departure - Discharge - Discharge Plan Condition: Good Disposition: HOME Patient Education Materials: Clear Liquid Diet (ED) Referrals: Cosme Munson MD [Medical Doctor] - 2 Days Additional Instructions: Please stay on a clear liquid diet tomorrow. If you do not have any further symptoms you can advance to full liquids. Also please call Dr. Munson's office in the morning and see if they can get you in for a visit on . At that point they will see how you are doing and how to advance the diet. If you have recurrence of severe pain and nausea/vomiting just come back to the ED. If you are getting worse we would want to get a CT scan and consider admitting you to the hospital. The only notable thing on your blood work is your kidney function, which has deteriorated a bit with your recent decrease in eating and drinking. We gave you 2l of saline tonight to "top off your tank" so to speak, but make sure to get plenty of fluids. A good gauge is how pale your urine looks, ideally you want it to be yellow tinted but not strongly yellow or concentrated. - Billing Disposition and Condition Condition: GOOD Disposition: Home - Attestation Statements Document Initiated by David: Yes Documenting Scribe: Jimena Dobson Provider For Whom David is Documenting (Include Credential): Rod Madera MD Scribe Attestation: I, Jimena Dobson, scribed for Rod Madera MD on 02/03/19 at 1838. Scribe Documentation Reviewed: Yes Provider Attestation: The documentation as recorded by the Jimena vivar accurately reflects the service I personally performed and the decisions made by me, Rod Madera MD Status of Scribe Document: Viewed Consult Consult: At 20:39, I spoke with Dr. Sams who says further workup at the discretion of the pt and myself. Dr. Sams is happy to consult again if pt needs to be admitted to the hospital.
[2019-01-12 21:31] LABS: ABS Eosinophils 0.1 10^3/ul (0-0.6); ABS Monocytes 1.4 10^3/ul (0-0.8); ABS Neutrophils 3.3 10^3/ul (1.5-7.7); Eosinophil % 2.4 %; Hematocrit 37 % (42-52); Lymphocyte % 17.2 %; Mean Corpuscular HGB Conc 33 g/dL (31-36); Mean Corpuscular Hemoglobin 28 pg (27-31); Mean Corpuscular Volume 86 fL (80-94); Mean Platelet Volume 10.8 fL (7.4-10.4); Platelet Count 251 10^3/uL (150-450); Red Cell Distribution Width 16 % (10-15)
[2019-01-12 21:44] LABS: Albumin 4.3 g/dL (3.2-5.2); Albumin/Globulin Ratio 1.7 (1-3); BUN/Creatinine Ratio 25.3 (8-20); Calcium 9.5 mg/dL (8.6-10.3); EGFR African American 51.7 (>60); EGFR Non-African American 42.7 (>60); Globulin 2.6 g/dL (2-4); Potassium 4.5 mmol/L (3.5-5.0); Total Bilirubin 0.5 mg/dL (0.2-1.0); Total Protein 6.9 g/dL (6.4-8.9)
[2019-01-12] MEDS ORDERED: NS 0.9% 1000 ML** 2,000 ML IV ONE (21:50)
[2019-01-12] MEDS ORDERED: diPHENhydraMINE PO* 25 MG PO ONE (23:53)
[2019-01-13 00:02] VITALS: BP 138/78
== END 2019-01-12 23:55 | disposition home or self-care (01) ==
LOC: ED 17:56
DX: E86.0 Dehydration (principal); K56.600 Partial intestinal obstruction, unspecified as to cause; R19.7 Diarrhea, unspecified; R10.9 Unspecified abdominal pain; K21.9 Gastro-esophageal reflux disease without esophagitis; I10 Essential (primary) hypertension
CPT/HCPCS: 36415; 74019; 80053; 85025; 96360; 99212; 99284; A9270-GY; G0463

== ENCOUNTER 2022-06-09 16:41 | Inpatient (IN) ==
[2022-06-09 19:58] LABS: Hematocrit 46 % (42-52); Mean Corpuscular HGB Conc 33 g/dL (31-36); Mean Corpuscular Hemoglobin 30 pg (27-31); Mean Corpuscular Volume 92 fL (80-94); Red Blood Count 4.97 10^6 /uL (4.18-5.48); Red Cell Distribution Width 14 % (10-15); White Blood Count 7.6 10^3/uL (3.5-10.8)
[2022-06-09 20:18] LABS: ABS Lymphocytes 0.7 10^3/ul (1.0-4.8); ABS Neutrophils 5.9 10^3/ul (1.5-7.7); Eosinophil % 0.4 %; Large Platelets Present; Lymphocyte % 9.2 %; Mean Platelet Volume 11.1 fL (7.4-10.4); Platelet Count 312 10^3/uL (150-450)
[2022-06-09 20:24] LABS: Albumin 4.3 g/dL (3.2-5.2); Albumin/Globulin Ratio 1.4 (1-3); C Reactive Protein 59.18 mg/L (<8.01); Calcium 10.4 mg/dL (8.6-10.3); Creatinine, Serum 1.93 mg/dL (0.67-1.17); Potassium 4.5 mmol/L (3.5-5.0); Total Bilirubin 0.6 mg/dL (0.2-1.0); Total Protein 7.3 g/dL (6.4-8.9); eGFR CKD-EPI 36.6 (>60)
[2022-06-09] MEDS ORDERED: Ondansetron 4 mg VIAL 2 MG/ML 2 ml VIAL IV ONE (20:26)
[2022-06-09] MEDS ORDERED: Iodixanol (CONTRAST) 320 MG/ML 100 ML SDV IV ONE (20:35)
[2022-06-09] MEDS ORDERED: Ondansetron 4 mg VIAL 2 MG/ML 2 ml VIAL IV PRN (22:30)
[2022-06-09] MEDS ORDERED: Prochlorperazine 5 mg/ml 2 ml VIAL (10 mg) IV ONE (22:38)
[2022-06-09] MEDS ORDERED: Prochlorperazine 5 mg/ml 2 ml VIAL (10 mg) IV PRN (22:53)
[2022-06-09] MEDS ORDERED: Acetaminophen IV 1 GM/100ML 1,000 MG/100 ML BAG IV PRN (23:04)
[2022-06-09] MEDS ORDERED: Lactated Ringers 1000 ml BAG 1,000 ML IV ONE (23:18)
[2022-06-09] MEDS: Enoxaparin 40 MG/0.4 ML SYR SUBCUT SCH (23:35)
[2022-06-10] MEDS: Lactated Ringers 1000 ml BAG 1,000 ML IV SCH ×2 (01:18→11:27)
[2022-06-10 05:27] LABS: ABS Monocytes 1.5 10^3/ul (0-0.8); Eosinophil % 0.1 %; Hematocrit 39 % (42-52); Hemoglobin 12.8 g/dL (14.0-18.0); Lymphocyte % 15.7 %; Mean Corpuscular HGB Conc 33 g/dL (31-36); Mean Corpuscular Hemoglobin 29 pg (27-31); Mean Corpuscular Volume 90 fL (80-94); Mean Platelet Volume 10.6 fL (7.4-10.4); Platelet Count 254 10^3/uL (150-450); Red Blood Count 4.37 10^6 /uL (4.18-5.48); Red Cell Distribution Width 13 % (10-15); White Blood Count 6.6 10^3/uL (3.5-10.8)
[2022-06-10 06:19] LABS: Calcium 9.2 mg/dL (8.6-10.3); Creatinine, Serum 1.78 mg/dL (0.67-1.17); Potassium 4.4 mmol/L (3.5-5.0); eGFR CKD-EPI 40.3 (>60)
[2022-06-10] MEDS: Pantoprazole VIAL 40 MG VIAL IV SCH (08:38)
[2022-06-10] MEDS ORDERED: Metoprolol Tartrate 5 mg VIAL 5 ml VIAL (1 mg/ml) IV SCH (11:00)
[2022-06-10] MEDS: Metoprolol Tartrate 5 mg VIAL 5 ml VIAL (1 mg/ml) IV SCH ×2 (11:55→17:37)
[2022-06-10] MEDS: Enoxaparin 40 MG/0.4 ML SYR SUBCUT SCH (20:29)
[2022-06-11] MEDS: Metoprolol Tartrate 5 mg VIAL 5 ml VIAL (1 mg/ml) IV SCH ×4 (00:21→18:04)
[2022-06-11 07:58] LABS: ABS Monocytes 0.9 10^3/ul (0-0.8); Eosinophil % 0.5 %; Hematocrit 38 % (42-52); Hemoglobin 12.5 g/dL (14.0-18.0); Lymphocyte % 14.7 %; Mean Corpuscular HGB Conc 33 g/dL (31-36); Mean Corpuscular Hemoglobin 30 pg (27-31); Mean Corpuscular Volume 91 fL (80-94); Mean Platelet Volume 10.7 fL (7.4-10.4); Platelet Count 231 10^3/uL (150-450); Red Blood Count 4.12 10^6 /uL (4.18-5.48); Red Cell Distribution Width 14 % (10-15)
[2022-06-11 08:44] LABS: Creatinine, Serum 1.21 mg/dL (0.67-1.17); Potassium 4.3 mmol/L (3.5-5.0)
[2022-06-11] MEDS: Pantoprazole VIAL 40 MG VIAL IV SCH (09:18)
[2022-06-11] MEDS: Enoxaparin 40 MG/0.4 ML SYR SUBCUT SCH (21:10)
[2022-06-12] MEDS: Pantoprazole VIAL 40 MG VIAL IV SCH (09:56)
[2022-06-12] MEDS: Pravastatin 20 mg TAB (NF) PO SCH (09:57)
[2022-06-12] MEDS: Enoxaparin 40 MG/0.4 ML SYR SUBCUT SCH (20:14)
[2022-06-13] MEDS: Pravastatin 20 mg TAB (NF) PO SCH (08:27)
[2022-06-13] MEDS: Pantoprazole VIAL 40 MG VIAL IV SCH (08:27)
[2022-06-13 11:13] VITALS: BP 124/77
== END 2022-06-13 14:47 | disposition home or self-care (01) | DRG 390 ==
LOC: ED 16:41 → EDHOLD 22:30 → SSU 06-10 10:46
PROVIDERS: ADMIT Student in an Organized Health Care Education/Training Program; ATTEND Student in an Organized Health Care Education/Training Program